=== PATIENT | female | born 1985 | race Caucasian/White ===

== ENCOUNTER 2020-09-19 14:13 | Emergency (ER) | payer BC, SELFPAY ==
[2020-09-19 14:18] VITALS: BP 124/79; PULSE 117; RESP 19; TEMP 36.4; O2SAT 98
[2020-09-19] MEDS: SODIUM CHLORIDE 0.9% IV 1,000 ML 999 ML IV CONT (15:29)
[2020-09-19] MEDS: FAMOTIDINE 20 MG/2 ML VIAL IV PUSH (15:30)
[2020-09-19] MEDS: DEXAMETHASONE SOD PHOS INJ 4 MG/ML VIAL 10 MG IV PUSH (15:32)
[2020-09-19 15:42] LABS: Basophils Absolute Auto 0.1 K/mm3 (0.0-0.1); Basophils Percent Auto 1.1 % (0.2-1.2); Eosinophils Absolute Auto 0.1 K/mm3 (0-0.3); Eosinophils Percent Auto 1.4 % (0-4.4); Hematocrit 44.7 % (37.0-47.0); Hemoglobin 15.9 g/dL (12.0-15.0); Immature Granulocyte Absolute 0.01 K/mm3 (0.00-0.031); Immature Granulocyte Percent A 0.2 % (0-0.5); Lymphocytes Absolute Auto 1.26 K/mm3 (0.9-3.2); Mean Corpuscular HGB Conc 35.6 g/dl (32-36); Mean Corpuscular Hemoglobin 30.7 pg (26-34); Mean Corpuscular Volume 86.3 fl (80-100); Mean Platelet Volume 10.3 fl (7.4-10.4); Monocytes Absolute Auto 0.4 K/mm3 (0.1-0.6); Monocytes Percent Auto 9.7 % (2.6-8.5); Neutrophils Absolute Auto 2.6 K/mm3 (1.3-6.7); Neutrophils Percent Auto 58.6 % (45.5-73.1); Platelet Count Result 178 k/mm3 (150-375); Red Blood Count 5.18 M/mm3 (4.2-5.4); Red Cell Distribution Width 12.2 % (11.5-14.5); White Blood Count 4.4 K/mm3 (4.5-10.0)
[2020-09-19 15:55] LABS: Anion Gap 7 mmol/L (8-16); Blood Urea Nitrogen 15 mg/dL (7-17); Calcium 8.6 mg/dL (8.4-10.2); Carbon Dioxide 25 mmol/L (22-30); Chloride 108 mmol/L (98-107); Estimated CRCL calculation 80 ml/min; Estimated Glomerular Filt Rate > 60; Glucose 91 mg/dL (65-105); Sodium 140 mmol/L (137-145)
[2020-09-19 16:46] LABS: CRP 2.9 mg/dL (<1.0)
--- NOTE | 2020-09-19 16:52 | ED.GENADULT ---
HPI - General Adult General Chief complaint: Wound/Laceration Stated complaint: Spider Bite left Leg Time Seen by Provider: 09/19/20 14:52 Source: patient Mode of arrival: ambulatory Limitations: no limitations History of Present Illness HPI narrative: Patient is a 35-year-old female who presents with wound to the left thigh that occurred Wednesday felt like what she believed to be an insect sting followed by pain and has since had discomfort to the left thigh above and below the area of the bite with increasing discoloration centrally with surrounding erythema. Patient denies similar occurrence or other individuals with similar rash. Patient was started on Keflex by primary care and tramadol. Patient denies fever chills nausea vomiting Related Data Allergies Allergy/AdvReac Type Severity Reaction Status Date / Time amoxicillin Allergy Unknown Unknown Verified 09/18/20 11:15 Penicillins Allergy Unknown Unknown Verified 09/18/20 11:15 Review of Systems Review of Systems: All systems reviewed & are unremarkable except as noted in HPI and below PMFSH Past Medical History Medical History (Updated 09/19/20 @ 17:09 by Juice Saucedo PA-C) Anxiety Depression Surgical History Surgical History Delivery by section Family History Family History Mother Family history of elevated blood lipids Social History Social History Smoking status: Never smoker Second hand tobacco smoke exposure: Yes Alcohol intake: never Exam Const: General: cooperative, healthy appearing and comfortable Orientation/consciousness: oriented to person Limitations: no limitations HENMT: Head: normal to inspection and normocephalic Ears: hearing grossly normal bilaterally and external ears normal General nose exam: Normal external nose present and Normal nares present Face and sinus: normal facial exam Mouth: Yes Normal oral and palatal mucosa present and Yes lip normal Eyes: General: appearance normal, both eyes and all related structures Neck: Neck: normal visual inspection Resp: Effort & Inspection: normal respiratory effort and able to speak in complete sentences Auscultation: clear to auscultation bilaterally Cardio: Rate: regular rate Rhythm: regular rhythm Heart sounds: S1 normal heart sound present and S2 normal heart sound present GI: Inspection: normal to inspection Skin: General skin exam: normal color and other (Patient with pale central lesion with slightly erythematous borders ) Wounds: wounds noted (Quarter sized lesion left thigh) Hair: normal Neuro: General: oriented to person Cranial nerves: Yes CN's II-XII intact bilaterally Speech: normal speech Gait exam (Neuro): Normal gait present Extrem: General: normal to inspection Right upper extremity: normal to inspection Left upper extremity: normal to inspection Right lower extremity: normal to inspection Psych: Appearance: grossly normal Mental Status: mental status grossly normal Speech and movement: Normal speech and movement present Affect: normal affect Attitude: cooperative Thought process: Normal thought process present Thought content: Yes Normal thought content present Course Course Emergency Course: Patient evaluated in the emergency department for wound to the left thigh had basic blood work obtained no high risk changes discussion was made with primary care who will follow the patient in clinic patient was given fluids steroid and antihistamines in the emergency department it is likely a spider bite thought to potentially be brown recluse given the central discoloration there is no eschar at this time. Patient advised to senait the wound margins and to follow with primary care and will do so patient was given instructions on what to do if symptoms worsen or concerns. Patient
[2020-09-19 17:32] VITALS: BP 122/81; PULSE 97; RESP 17; O2SAT 98
== END 2020-09-19 17:33 | disposition home or self-care (01) ==
PROVIDERS: Emergency Medicine Emergency Medical Services; Emergency Provider Emergency Medicine; PCP Family Medicine
DX: S71.152A Open bite, left thigh, initial encounter (principal); W57.XXXA Bitten or stung by nonvenomous insect and other nonvenomous arthropods, initial encounter
CPT/HCPCS: 36415; 80048; 85025; 86140; 96361; 96374; 96375; 99284; J0131; J1100; J7030

== ENCOUNTER 2024-01-21 19:03 | Emergency (ER) | payer BC, SELFPAY ==
--- NOTE | ~2024-01-21 | XR_ITS ---
EXAMINATION: XR tibia fibula RT 2V DATE: 01/21/2024 19:45 INDICATION: Pain at the distal right lower leg TECHNIQUE: AP and lateral views of the right lower leg were obtained. COMPARISON: None. FINDINGS: Alignment is normal. No fracture. Joint spaces are normal. No right ankle joint effusion. Soft tissue s are unremarkable. IMPRESSION: 1. Negative right lower leg radiographs. Reviewed, dictated and finalized at location A.
[2024-01-21 19:24] VITALS: BP 122/80; PULSE 80; RESP 16; TEMP 36.6; O2SAT 99
--- NOTE | 2024-01-21 19:34 | ED.GENADULT ---
HPI - General Adult General Chief complaint: Extremity Injury, Lower Stated complaint: Right Ankle and Leg Pain Time Seen by Provider: 01/21/24 19:30 Source: patient, RN notes reviewed and old records reviewed Mode of arrival: ambulatory Limitations: no limitations History of Present Illness HPI narrative: 38 year old female who presents to [facility] care with complaints of pain to her right anterior lower leg with no known injury which started on Wednesday with pain at the anterior aspect of her right lower leg near the ankle. with some pain in her whole leg when she ambulates. Patient has some redness to the anterior right lower leg and when she extends and flexes her toes pain is in the anterior aspect of her leg. Patient has no pain to the calf of her lower leg with no swelling noted She reports that her leg is painful to walk on and she has strong pedal pulses to her right foot. Patient has worked the past 3 days on her leg hobbling around. Patient report family history of DVT denies any known clotting disease in family. MD complaint: right leg pain Onset (ago): day(s) (3) Location: right (anterior lower right leg with some redness) and lower extremity Severity scale (1-10): 8 Quality: aching and other (throbbing) Pain Consistency: colicky Treatments prior to arrival: NSAID Related Data Allergies Allergy/AdvReac Type Severity Reaction Status Date / Time amoxicillin Allergy Unknown Unknown Verified 01/22/24 07:45 Penicillins Allergy Unknown Unknown Verified 01/22/24 07:45 Review of Systems Review of Systems: CONSTITUTIONAL: Denies fever, chills, or sweats. EYES: Denies visual changes, redness, or discharge. ENT: Denies rhinorrhea, congestion, sore throat, or otalgia. CARDIOVASCULAR: Denies chest pain, palpitations, or edema. RESPIRATORY: Denies cough or dyspnea. GASTROINTESTINAL: Denies abdominal pain, nausea, vomiting, or diarrhea. GENITOURINARY: Denies dysuria or hematuria. SKIN: Denies rash or itching. MUSCULOSKELETAL: Denies back pain, positive for pain to her right lower anterior leg with some redness anterior aspect lower leg,, or myalgia. NEUROLOGIC: Denies headache, numbness, or weakness. PSYCHIATRIC: Reports anxiety or depression. All systems reviewed & are unremarkable except as noted in HPI and below [facility] Past Medical History Medical History Anxiety Current moderate episode of major depressive disorder Depression Obesity PCOS (polycystic ovarian syndrome) Surgical History Surgical History Delivery by section History of endometrial ablation Feb 2022 History of foot surgery Family History Family History Mother Family history of elevated blood lipids Social History Social History Smoking status: Current some day smoker Second hand tobacco smoke exposure: Yes Alcohol intake: never Substance use: never Substance use type: does not use Do You Feel Safe in your Home?: Yes Lack of Transportation: No Lack of Food: Never True Current Housing: I Have Housing Concerned About Future Housing: No Difficulty Paying Gas/Electric Bills: No Difficulty Paying for Meds: No Currently Unemployed: No Education: High School Diploma/GED Difficulty w/ Childcare or Family Care: No Living arrangements: with family Occupation/Education: occupation 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 There is no relevant family history pertinent to the presenting complaint Exam Narrative: GENERAL: Well-appearing, well-nourished, and in some acute distress due to her pain. HEAD: Normocephalic, atraum
== END 2024-01-21 20:04 | disposition home or self-care (01) ==
PROVIDERS: Emergency Provider Registered Nurse; PCP Family Medicine
DX: M79.661 Pain in right lower leg (principal); F17.200 Nicotine dependence, unspecified, uncomplicated; E28.2 Polycystic ovarian syndrome; E66.9 Obesity, unspecified; Z68.28 Body mass index [BMI] 28.0-28.9, adult
CPT/HCPCS: 73590; 99213; G0463

== ENCOUNTER 2024-01-22 06:47 | Emergency (ER) | payer BC, SELFPAY ==
--- NOTE | ~2024-01-22 | US_ITS ---
EXAMINATION: US venous doppler LE RT DATE: 01/22/2024 07:55 INDICATION: Right lower limb pain and swelling. TECHNIQUE: Grayscale ultrasound images without and with compression and Doppler ultrasound images of the right lower extremity veins were obtained. COMPARISON: None. FINDINGS: The visualized portions of right common femoral vein, profunda (deep) femoral vein, femoral vein, pop liteal vein, peroneal veins, posterior tibial veins, and greater saphenous vein outflow are patent. IMPRESSION: 1. No deep venous thrombosis. Reviewed, dictated and finalized at location A.
[2024-01-22 06:50] VITALS: BP 126/87; PULSE 101; RESP 20; TEMP 36.3; O2SAT 98
--- NOTE | 2024-01-22 08:03 | ED.EXTPRO ---
HPI - Extremity Problem General Chief complaint: Extremity Problem,Nontraumatic Stated complaint: leg pain Time Seen by Provider: 01/22/24 07:35 History of Present Illness HPI Narrative: Patient is a 38-year-old female who presents ER for evaluation of possible DVT. She was seen at urgent care yesterday. She had been having pain to her anterior right garcia as well as some redness and mild swelling. She has family history of DVT. They performed an x-ray that showed no acute bony issue. Patient denies trauma. Pain is better with rest. Redness is decreased today. Patient reports she felt a bit anxious last night but otherwise has not been having any chest pain or shortness of breath. Related Data Allergies Allergy/AdvReac Type Severity Reaction Status Date / Time amoxicillin Allergy Unknown Unknown Verified 01/22/24 07:45 Penicillins Allergy Unknown Unknown Verified 01/22/24 07:45 Review of Systems Constitutional: Constitutional: Reports no additional constitutional complaints Cardiovascular: Cardiovascular: Reports no additional cardiovascular complaints Respiratory: Respiratory: Reports no additional respiratory complaints Musculoskeletal: Musculoskeletal: Denies back pain, Denies arthralgias, Denies joint swelling and Denies muscle cramps Integumentary/Breasts: Skin/Breast: Denies pruritus, Reports erythema, Denies rash and Denies skin ulcer PMFSH Past Medical History Medical History Anxiety Current moderate episode of major depressive disorder Depression Obesity PCOS (polycystic ovarian syndrome) Surgical History Surgical History Delivery by section History of endometrial ablation Feb 2022 History of foot surgery Family History Family History Mother Family history of elevated blood lipids Social History Social History Smoking status: Current some day smoker Second hand tobacco smoke exposure: Yes Alcohol intake: never Substance use: never Substance use type: does not use Do You Feel Safe in your Home?: Yes Lack of Transportation: No Lack of Food: Never True Current Housing: I Have Housing Concerned About Future Housing: No Difficulty Paying Gas/Electric Bills: No Difficulty Paying for Meds: No Currently Unemployed: No Education: High School Diploma/GED Difficulty w/ Childcare or Family Care: No Living arrangements: with family Occupation/Education: occupation 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 HEAD: Normocephalic, atraumatic. CHEST: Clear to auscultation. No respiratory distress. HEART: Regular rate and rhythm. Normal peripheral pulses. EXTREMITIES: Normal range of motion. No edema. Mild tenderness of the right anterior garcia distal aspect but not at the ankle. SKIN: Warm, dry, no rash. NEURO: Alert and oriented x3. PSYCH: Normal mood and affect. Course Vital Signs Vital signs: Vital Signs Temperature 97.4 F L 01/22/24 06:50 Pulse Rate 101 H 01/22/24 06:50 Respiratory Rate 20 01/22/24 06:50 Blood Pressure 126/87 01/22/24 06:50 Pulse Oximetry 98 01/22/24 06:50 Oxygen Delivery Room Air 01/22/24 06:50 Temperature 97.4 F L 01/22/24 06:50 Pulse Rate 101 H 01/22/24 06:50 Respiratory Rate 20 01/22/24 06:50 Blood Pressure 126/87 01/22/24 06:50 Pulse Oximetry 98 01/22/24 06:50 Oxygen Delivery Room Air 01/22/24 06:50 MDM - Extremity (Nontraumatic) MDM Narrative Medical decision making narrative: -Course: Resting comfortably, informed results. Discussed treatment plan. -Co-morbiditie
[2024-01-22 08:17] VITALS: BP 124/84; PULSE 87; RESP 20; TEMP 36.3; O2SAT 99
== END 2024-01-22 08:18 | disposition home or self-care (01) ==
PROVIDERS: Emergency Provider Emergency Medicine; PCP Family Medicine
DX: M79.661 Pain in right lower leg (principal); E28.2 Polycystic ovarian syndrome; E66.9 Obesity, unspecified; Z68.28 Body mass index [BMI] 28.0-28.9, adult; F17.200 Nicotine dependence, unspecified, uncomplicated; Z83.6 Family history of other diseases of the respiratory system
CPT/HCPCS: 93971; 99284

== ENCOUNTER 2024-08-24 04:27 | Emergency (ER) | payer BC, SELFPAY ==
--- NOTE | ~2024-08-24 | CT_ITS ---
CT of the Abdomen and Pelvis: Indication: Abdominal pain Technique: 2.5 mm axial scans were obtained through the abdomen and pelvis following intravenous adm inistration of 100 cc of Omnipaque 350. Dose reduction technique was used on this scan by utilizing a utomated exposure control and iterative reconstruction technique. The dose-length product (DLP) was 3 30.28 mGy-cm. Findings: Scans through the lung bases are unremarkable. The liver, spleen, pancreas, gallbladder, adrenals and kidneys are within normal limits. No evidence of aortic aneurysm. No lymphadenopathy. There is wall thickening of small bowel loops with mild haziness in the adjacent mesentery. No bowel obstruction. Large bowel unremarkable. Images through the pelvis were performed. Urinary bladder unremarkable. No adnexal mass evident. Smal l amount of pelvic ascites present. Impression: Nonspecific small bowel infectious/inflammatory enteritis. Small amount of pelvic ascites. Reviewed, dictated and finalized at [facility]. ENTRY SPECIALIST Impression: Nonspecific small bowel infectious/inflammatory enteritis. Small amount of pelvic ascites.
--- OUTSIDE RECORDS SUMMARY | 2024-08-24 04:29 | XMS_ITS | Referral Summary ---
Author Organization [facility] Address [address] [place] [address] Care Team Providers Care Plumbing Service Technician Name Role Phone Amisha Pizarro MD Primary Care Provider Encounters Date Type Department Care Team Description 08/22/2024 8:39 PM LOG ROLLER - 08/23/2024 1:44 AM [facility] Emergency Department [address] [place] [address] Discharge Disposition: Left without being seen from Last 3 Months Allergies Active Allergy Reactions Criticality Noted Date Comments Hydrocodone Penicillin G Swollen tongue,Other (See comments) Low Reaction: Swollen Tongue, throat, Penicillins Swollen tongue High Reaction: tongue swell, Prochlorperazine Swollen tongue High Reaction: TONGUE SWELLING, Medications esomeprazole DR (NexIUM) 40 mg capsule Take 40 mg by mouth daily before breakfast. Active ibuprofen (ADVIL,MOTRIN) 800 mg tablet TAKE 1 TABLET BY MOUTH EVERY 6-8 HOURS NEEDED 1 06/11/2017 Active LORazepam (ATIVAN) 1 mg tablet 0 12/23/2021 Active spironolactone (ALDACTONE) 50 mg tablet Take 1 tablet (50 mg total) by mouth daily 90 tablet 3 02/25/2022 Active sertraline (ZOLOFT) 100 mg tablet Take 100 mg by mouth daily Active buPROPion XL (WELLBUTRIN XL) 300 mg 24 hr tablet Take 300 mg by mouth daily Active oxyCODONE-aceta minophen (PERCOCET) 5-325 mg per tabletIndicatio ns:Pain Take 1-2 tablets by mouth every 4 (four) hours as needed for pain (pain) 3 tablet 04/03/2022 Active Active Problems Patient Care Coordination No te Formatting of this note migh t be different from the original. [facility] growth scan 05-19-17 2906 gm (60%) 03/17/17 flu inj left arm.ac Rpt CS 06/09/17 @ 9:[address] [facility] Patient is scheduled for her [facility] 19 wk usg 01/22/17@1pm pt is informed Problem Noted Date Diagnosed Date Menorrhagia with regular cycle 03/13/2022 Overview (03/13/2022): Added automatically from request for surgery [id number] Depression 02/02/2022 Intrauterine 02/08/2017 Generalized anxiety disorder 05/13/2016 Abnormal cervical Papanicolaou smear 11/23/2014 Overview (10/01/2016): Abnormal Papanicolaou smear of cervix Chronic headache 11/04/2013 Overview (10/01/2016): Chronic headaches Polycystic ovaries 01/05/2013 Overview (10/01/2016): PCOS (polycystic ovarian syndrome) Tobacco dependence syndrome 01/05/2013 Overview (10/01/2016): Tobacco abuse Immunizations Immunization Administration Dates Next Due Influenza, Quadrivalent, Spl it, Preservative Free, Intramuscular 03/17/2017,04/17/2015 Influenza, Trivalent, IM (MDV) 04/04/2013 Rho (D) Immune Globulin 04/01/2017 Social History Tobacco Use Types Packs/Day Years Used Date Smoking Tobacco: Former Cigarettes Smokeless Tobacco: Never Tobacco Cessation:Counseling Given: Not Answered Alcohol Use Standard Drinks/Week Comments No 0 (1 standard drink = 0.6 oz pur e alcohol) AUDIT-C Answer Date Recorded Q1: How often do you have a drink containing alc ohol? Never 04/03/2022 Average Number of Drinks Not on file 022 Q3: How often do you have si x or more drinks on one occasion? Never 04/03/2022 Personal Safety Answer Date Recorded Have you ever been in or are you currently in a harmful physical or emotional relationship or is someone making you feel afraid or unsafe? Denies 08/22/2024 Comments No Sex and Gender Information Value Date Recorded Sex Assigned at Not on file Legal Sex Female 10:43 AM LOG ROLLER Gender Identity Not on file Sexual Orientation Not on file Last Filed Vital Signs Vital Sign Reading Time Taken Comments Blood Pressure 122/72 08/22/2024 8:54 PM LOG ROLLER Pulse 72 08/22/2024 8:54 PM LOG ROLLER Temperature 36.3 C (97.4 F) 08/22/2024 8:54 PM LOG ROLLER Respiratory Rate 16 08/22/2024 8:54 PM LOG ROLLER Oxygen Saturation 98% 08/22/2024 8:54 PM LOG ROLLER Inhaled Oxygen Concentration - - Weight 68 kg (150 lb) 08/22/2024 8:52 PM LOG ROLLER Height 160 cm (5' 3 ) 08/22/2024 8:52 PM LOG ROLLER Body Mass Index 26.57 08/22/2024 8:52 PM LOG ROLLER Plan of Treatment Not on file Procedures Procedure Name Priority Date/Time Associated Diagnosis Comments XR CHEST 1 VIEW ED 08/22/2024 9:40 PM LOG ROLLER EGFR STAT 08/22/2024 9:05 PM LOG ROLLER DIFFERENTIAL AUTO STAT 08/22/2024 9:0 5 PM LOG ROLLER TROPONIN T HIGH-SENSITIVITY SERIES (BASELINE, 2HR, 4HR, 6HR) STAT 08/22/2024 9:05 PM LOG ROLLER LIPASE STAT 08/22/2024 9:05 PM LOG ROLLER COMPREHENSIVE METABOLIC PANEL STAT 08/22/2024 9:05 PM LOG ROLLER CBC WITH AUTO DIFFERENTIAL STAT 08/22/2024 9:05 PM LOG ROLLER PAP AND HIGH RISK HPV, REFLEX TO GENOTYPING Routine 02/02/2022 2:28 PM CDT Screening for malignant neoplasm of the cervix from Last 3 Months or Most Recently Relevant to Health Maintenance Results * XR Chest 1 Vw Portable (08/22/2024 9:40 PM LOG ROLLER) Anatomical Region Laterality Modality Body, Chest N/A Computed Radiogr aphy 08/22/2024 10:4 3 PM LOG ROLLER Narrative 08/22/2024 10:43 PM LOG ROLLER EXAM DESCRIPTION: XR CHEST 1 VIEW REASON FOR STUDY: epigastric pain Pt ambulatory to ED from home. Pt states she is having 7/10 epigastric pain that radiates to her L flank which comes and goes for the last 24 hours. Pt denies any pertinent medical history. TECHNIQUE: Frontal radiographic view(s) of the chest. COMPARISON: 05/10/2006 FINDINGS: LUNGS: The lungs are clear. No focal pulmonary parenchymal consolidation, pleural effusion, or pneumothorax. HEART/MEDIASTINUM: Cardiac silhouette normal in size. Mediastinal and hilar contours appear normal. LINES/TUBES: None. BONES: No acute osseous abnormality. IMPRESSION: No acute cardiopulmonary abnormality. THIS IS AN ELECTRONICALLY VERIFIED FINAL REPORT 08/22/2024 10:43 PM - Electronically signed by Pranav Oconnell M.D. AT: AT Report ID: [id number] Reading Location: [id number] Procedure Note Pranav Oconnell MD - 08/22/2024 EXAM DESCRIPTION: XR CHEST 1 VIEW REASON FOR STUDY: epigastric pain Pt ambulatory to ED from home. Pt states she is having 7/10 epigastricpain that radiates to her L flank which comes and goes for the last 24 hours.Pt denies any pertinent medical history. TECHNIQUE: Frontal radiographic view(s) of the chest. COMPARISON: 05/10/2006 FINDINGS: LUNGS: The lungs are clear. No focal pulmonary parenchymalconsolidation, pleural effusion, or pneumothorax. HEART/MEDIASTINUM: Cardiac silhouette normal in size. Mediastinal andhilar contours appear normal. LINES/TUBES: None. BONES: No acute osseous abnormality. IMPRESSION: No acute cardiopulmonary abnormality. THIS IS AN ELECTRONICALLY VERIFIED FINAL REPORT 08/22/2024 10:43 PM - Electronically signed by Andtalon Oconnell M.D. AT: AT Report ID: [id number] Reading Location: [id number] us Vladimir Purikimberly COSTING ANALYST IMG XR PROCEDURES Final Res ult * Troponin T high-sensitivity series (baseline, 2hr, 4hr, 6hr) (08/22/2024 9:05 PM LOG ROLLER) Pathologist [facility] Trop T hs <6 <=14 ng/L Comment: Interpretive Data For further hscTnT resources including the diagnostic algorithm and an aid in interpretation, copy and paste this link: [email or web address].testcatalog.org/show/[email or web address] Current Interpretive Data last revised 2020. Blood 08/22/2024 9:05 PM LOG ROLLER 08/22/2024 9:22 PM LOG ROLLER us Lyndsay Rawls MD LAB BLOOD ORDERABLE S Final Result [facility] [place]) 7 [facility] Department [place] [address] * eGFR (08/22/2024 9:05 PM LOG ROLLER) eGFR 78 >=60 mL/min/1. 73 m2 Comment: Interpretive Data Reference Interval Normal >/= 90 mL/min/1.73m2 Mildly decreased* 60 - 89 mL/min/1.73m2 Mildly to moderately decreased 45 - 59 mL/min/1.73m2 Moderately to severely decreased 30 - 44 mL/min/1.73m2 Severely decreased 15 - 29 mL/min/1.73m2 Kidney Failure < 15 mL/min/1.73m2 *Relative to young adult level Estimated glomerular filtration rate is determined by the 2020 CKD-EPI equation recommended by the National Kidney Foundation (A Unifying Approach to GFR Estimation: Recommendations of the NKF-ASK Task Force on Reassessing the Inclusion of Race in Diagnosing Kidney Disease, JASN 2020). The CKD-EPI equation should not be used for patients with unstable renal function and has not been validated in children and those over 70. Current interpretive data was last reviewed 2021. Blood 08/22/2024 9:05 PM LOG ROLLER 08/22/2024 9:22 PM LOG ROLLER us Lyndsay Rawls MD LAB BLOOD ORDERABLE S Final Result [facility] ([place]) 1 [facility] Department [place] [address] * Differential, auto (08/22/2024 9:05 PM LOG ROLLER) Neutrophil abs 6.0 1.5 - 6.5 K/cumm Imm gran abs 0.0 0.0 - 0.1 K/cumm [facility] ([place]) Lymphocyte abs 2.8 0.8 - 3.3 K/cumm [facility] ([place]) Monocyte abs 0.7 0.2 - 0.8 K/cumm [facility] ([place]) Eosinophil abs 0.1 0.0 - 0.5 K/cumm [facility] ([place]) Basophil abs 0.1 0.0 - 0.1 K/cumm [facility] ([place]) Neutrophil pct 62.4 % [facility] ([place]) Comment: Interpretive Data Percent cell count reference ranges are not reported, since discordance with absolute values may lead to misinterpretation of CBC data. Current Interpretive Data was last revised on 2017. Imm gran pct 0.2 % [facility] ([place]) Comment: Interpretive Data Percent cell count reference ranges are not reported, since discordance with absolute values may lead to misinterpretation of CBC data. Current Interpretive Data was last revised on 2017. Lymphocyte pct 29.0 % [facility] ([place]) Comment: Interpretive Data Percent cell count reference ranges are not reported, since discordance with absolute values may lead to misinterpretation of CBC data. Current Interpretive Data was last revised on 2017. Monocyte pct 6.8 % [facility] ([place]) Comment: Interpretive Data Percent cell count reference ranges are not reported, since discordance with absolute values may lead to misinterpretation of CBC data. Current Interpretive Data was last revised on 2017. Eosinophil pct 1.1 % [facility] ([place]) Comment: Interpretive Data Percent cell count reference ranges are not reported, since discordance with absolute values may lead to misinterpretation of CBC data. Current Interpretive Data was last revised on 2017. Basophil pct 0.5 % [facility] ([place]) Comment: Interpretive Data Percent cell count reference ranges are not reported, since discordance with absolute values may lead to misinterpretation of CBC data. Current Interpretive Data was last revised on 2017. Blood 08/22/2024 9:05 PM LOG ROLLER 08/22/2024 9:22 PM LOG ROLLER us Lyndsay Rawls MD LAB BLOOD ORDERABLE S Final Result [facility] ([place] Department [place] [address] * (ABNORMAL) CBC with auto differential (08/22/2024 9:05 PM LOG ROLLER) WBC 9.6 3.8 - 9.9 K/cumm Hgb 16.2(H) 11.9 - 15.5 g/dL [facility] ([place]) Hct 45.3 35.6 - 45.5 % [facility] ([place]) Plt 271 150 - 400 K/cumm [facility] ([place]) MPV 10.7 9.1 - 12.3 fL [facility] ([place]) RBC 5.31(H) 3.90 - 5.20 M/cumm [facility] ([place]) MCV 85.3 81.3 - 96.4 fL [facility] ([place]) MCH 30.5 27.1 - 33.3 pg [facility] ([place]) MCHC 35.8(H) 32.3 - 35.7 g/dL [facility] ([place]) RDW CV 12.7 11.1 - 14.9 % [facility] ([place]) RDW SD 39.5 35.7 - 48.1 fL [facility] ([place]) NRBC abs 0.00 0.00 - 0.01 K/cumm [facility] ([place]) Blood Venous blood specimen / Unknown 08/22/2024 9:05 PM LOG ROLLER 08/22/2024 9:22 PM LOG ROLLER Lyndsay Rawls MD LAB BLOOD ORDERABLE S Final Result Performing Organization Address City/[facility]/ZIP Co de Phone Number [facility] ([place]) 1 [facility] [place] [address] * Lipase (08/22/2024 9:05 PM LOG ROLLER) Pathologist [facility] Lipase 46 10 - 99 Units/L Blood Venous blood specimen / Unknown 08/22/2024 9:05 PM LOG ROLLER 08/22/2024 9:22 PM LOG ROLLER Lyndsay Rawls MD LAB BLOOD ORDERABLE S Final Result Performing Organization Address City/[facility] Co de Phone Number [facility] ([place]) [address] [place] [address] * Comprehensive metabolic panel (08/22/2024 9:05 PM LOG ROLLER) Pathologist [facility] Sodium 137 135 - 145 mmol/L Potassium, pl 3.7 3.3 - 4.9 mmol/L [facility]) Chloride 101 97 - 110 mmol/L [facility] ([place] CO2 23 22 - 32 mmol/L [facility]) Anion gap 14 2 - 15 mmol/L [facility] BUN 14 6 - 25 mg/dL [facility] ([place]) Creatinine 0.95 0.60 - 1.10 mg/dL [facility] ([place]) Glucose 111 70 - 199 mg/dL [facility] ([place]) Comment: Interpretive Data Fasting glucose >/= 126 mg/dl is diagnostic for diabetes. Fasting is defined as no caloric intake for at least 8 hours. Fasting glucose between 100 mg/dl to 125 mg/dl is diagnostic of prediabetes. In a patient with classic symptoms of hyperglycemia or hyperglycemic crisis, a random glucose >/= 200 mg/dl is diagnostic for diabetes. In the absence of unequivocal hyperglycemia, results should be confirmed by repeat testing. The classification and Diagnosis of Diabetes Diabetes Care 202; 46: S19-S40. Current interpretive data was last revised 2022. Calcium 9.9 8.5 - 10.3 mg/dL [facility] Bilirubin, total 0.7 0.1 - 1.2 mg/dL [facility] ([place]) Protein, pl 7.1 6.5 - 8.5 g/dL [facility] ([place]) Albumin 4.5 3.5 - 5.0 g/dL [facility] ([place]) Alk phos 106 40 - 130 Units/L [facility] ([place]) ALT 23 7 - 45 Units/L [facility] ([place]) AST 19 10 - 45 Units/L [facility] ([place]) Comment:Slightly Hemolyzed S pecimen Blood 08/22/2024 9:05 PM LOG ROLLER 08/22/2024 9:22 PM LOG ROLLER us Lyndsay Rawls MD LAB BLOOD ORDERABLE S Final Result [facility] ([place]) 1 [facility] Department [place] [address] * Pap and High Risk HPV, reflex to Genotyping (02/02/2022 2:28 PM CDT) Thin prep (Pap test) 02/02/2022 2:28 PM CDT 02/06/2022 9:34 AM CDT Narrative PATHOLOGY [facility] - 02/10/2022 8:19 AM CDT [facility] results best viewed via link to PDF [place] [id number] [place], [place] [address] Tele: Sera Husain MD - Medical Terminologist CYTOLOGY REPORT Note to Patients: This report may contain a detailed description of human tissue sent by a health care provider to the laboratory for pathologic evaluation. The content of this report is essential for diagnosis and may provide important critical findings. This information may be unfamiliar to patients to review without a medical professional present. It is advised that the patient review this report in the presence of a health care provider who can answer questions and explain the details. Patient Name: JULI CAN Address: [address] , [place] [id number] Gender: F : 1985 (Age: 36) Service: Location: Hospital #: [id number] Patient Type: [facility] SPECIMEN Taken: 02/02/2022 Reported: 02/10/2022 Physician(s): Nia Castro M.D. FINAL DIAGNOSIS: Specimen Type: - ThinPrep Pap and HPV w/ reflex Genotyping Statement of Specimen Adequacy: Source: Cervical/Endocervical - Satisfactory for interpretation - Endocervical/Transformation zone component absent or insufficient - Case screened using computer assisted imaging technology General Categorization: - Negative for intraepithelial lesion or malignancy xbb/02/10/2022 08:19SO Patel (ASCP) Report Reviewed and Electronically Signed By SO Patel (ASCP)Clerical Data Follow A; [id number] DIAGNOSIS COMMENT: Ancillary Testing: HPV High Risk Group (16, 18, 31, 33, 35, 39, 45, 51, 52, 56, 58, 59, 66 and 68) - Not Detected Reference Range: Not Detected This test was performed using the LORIE 4800 CLINICAL DIAGNOSIS AND HISTORY Last Menstrual Period: 11/22 Menstrual History: Irregular Cycles REPORT IMAGES AND/OR SCANNED DOCUMENTS ONLY VIEWABLE IN PDF FORMAT The Pap test is a screening test used to aid in the detection of cervical cancer and its precursors. It should not be the sole means by which malignant and premalignant lesions are diagnosed. Both false negative and false positive results may occur. It also has poor sensitivity for the detection of endometrial lesions and should not be used to evaluate suspected endometrial abnormalities. For these reasons it is most important to obtain Pap tests at regular intervals, as recommended by your physician or nurse practitioner. us Nia Castro MD LAB CYTOLOGY ORDERABLES Fin al Result PATHOLOGY [facility] Laboratory Receiving [address] [place] [address] from Last 3 Months or Most Recently Relevant to Health Maintenance Insurance [employer] [facility] [place] [employer] ACCESS OOS [facility] OOS Advance Directives For more information, please contact: [phone] * Full Code (Latest Code Status on File) Date Activated Date Inactivated Comments 04/03/2022 12:51 PM 04/03/2022 4:41 PM Care Teams Plumbing Service Technician Relationship Specialty Start Date End Date Amisha Pizarro MD PCP - General 09/22/20
--- OUTSIDE RECORDS SUMMARY | 2024-08-24 04:29 | XMS_ITS | Patient Health Summary ---
Author Organization [facility] Address [address] [place] [address] Care Team Providers Care Designer Writer Name Role Phone Amisha Pizarro MD Primary Care Provider [phone] Note from [facility],non-owned Affiliates and Associated Physician Practices is amultiple site organization consisting of ambulatory clinics and hospital sitesin [place], [place]. This disclosure is being madepursuant to the Care Everywhere program and may not contain all information available regarding this patient. Last updated 18.[facility] Allergies * Penicillins Medications * Be aware that medications may not be up to date on this document. Alwaysverify current medications with the patient. * Wzgfmi-JcUox-AgPbs-FA-CA-Waka (TRIVEEN-DUO DHA) 29-1-200 & 400 MG MISC (Started 09/09/2012) Take 2 Tabs by mouth once daily. May dispense any free Vitamin w/ DHA 12 refills left * sertraline (Zoloft) 100 MG tablet Take 1 (one) tablet by mouth once daily * buPROPion XL 24hr (Wellbutrin-XL) 300 MG tablet Take 1 (one) tablet by mouth every morning * oxyCODONE-acetaminophen (Percocet) 10-325 MG tablet(Started 04/30/2022) Take 1 (one) tablet by mouth every 8 hours as needed Active Problems Problem Noted Date Diagnosed Date Crushing injury of left foot, initial encounter 04/28/2022 Open non-physeal fracture of phalanx of toe of left foot, unspecified toe, initial encounter 04/28/2022 Encounter for health-related screening 1 Immunizations * TDAP (7yrs+)(Given 04/28/2022) Social History Tobacco Use Types Packs/Day Years Used Date Smoking Tobacco: Former Cigarettes Q uit: 04/21/2012 Smokeless Tobacco: Never Tobacco Cessation:Counseling Given: Not Answered Alcohol Use Standard Drinks/Week Comments No 0 (1 standard drink = 0.6 oz pur e alcohol) AUDIT-C Answer Date Recorded Q1: How often do you have a drink containing alcohol? Never 04/28/2022 Q2: How many drinks containi ng alcohol do you have on a typical day when you are drinking? Patient does not drink Q3: How often do you have si x or more drinks on one occasion? Never 04/28/2022 Hunger Vital Sign Answer Date Recorded Within the past 12 months, y ou worried that your food would run out before you got the money to buy more. Never true 04/29/20 22 Within the past 12 months, t he food you bought just didn't last and you didn't have money to get more. Never true 04/29/2022 Sex and Gender Information Value Date Recorded Sex Assigned at Not on file Gender Identity Not on file Sexual Orientation Not on file Last Filed Vital Signs Vital Sign Reading Time Taken Comments Blood Pressure 122/81 04/30/2022 11:15 AM [facility] Pulse 82 04/30/2022 11:15 AM [facility] Temperature 37.1 C (98.7 F) 04/30/2022 11:15 AM [facility] Respiratory Rate 14 04/30/2022 11:15 AM [facility] Oxygen Saturation 98% 04/30/2022 11:15 AM [facility] Inhaled Oxygen Concentration - - Weight 72.6 kg (160 lb) 04/28/2022 9:07 AM [facility] Height 160 cm (5' 3 ) 04/28/2022 9:07 AM [facility] Body Mass Index 28.34 04/28/2022 9:07 AM [facility] Medical Devices Implanted Type Area Senior Compensation Consultant Device Identifier Shelf Expiration Date Model / Serial / Lot 0.45 Kwire Implanted:Qty: 2 on 04/28/2022 by Thierry Meredith DPM at [facility] Left: Toe [employer] [id number] / / Description:1 KWIRE TO LEFT 2ND TOE, 1 KWIRE TO LEFT 3RD TOE Procedures * IMAGING/RADIOLOGY/XRAY RESULTS ORDER(Performed 05/01/2022) * COMPREHENSIVE METABOLIC PANEL(Performed 04/30/2022) Performed for Crushing injury of left foot, initial encounter * CBC W/O DIFFERENTIAL(Performed 04/30/2022) Performed for Crushing injury of left foot, initial encounter * CBC W/O DIFFERENTIAL(Performed 04/29/2022) Performed for Open non-physeal fracture of phalanx of toe of left foot, unspecified toe, initial encounter * BASIC METABOLIC PANEL (CALCIUM TOTAL)(Performed 04/29/2022) Performed for Open non-physeal fracture of phalanx of toe of left foot, unspecified toe, initial encounter * FL HERNANDO SURGERY(Performed 04/28/2022) Performed for Open non-physeal fracture of phalanx of toe of left foot, unspecified toe, initial encounter * AMPUTATION TOE(Performed 04/28/2022) * PTT(Performed 04/28/2022) * PT-INR(Performed 04/28/2022) * CBC W AUTO DIFFERENTIAL(Performed 04/28/2022) * XR FOOT LEFT 3VW OR MORE(Performed 04/28/2022) Performed for Crushing injury of left foot, initial encounter * TYPE + SCREEN PANEL(Performed 04/28/2022) * COMPREHENSIVE METABOLIC PANEL(Performed 04/28/2022) * URINE MICROSCOPIC ONLY REFLEX TO CULTURE(Performed 01/14/2017) Performed for 18 weeks gestation of ([facility]) * URINALYSIS REFLEX MICROSCOPIC REFLEX CULTURE(Performed 01/14/2017) Performed for 18 weeks gestation of ([facility]) * CULTURE URINE(Performed 01/14/2017) Performed for 18 weeks gestation of ([facility]) * URINALYSIS OBSTETRICS - POINT OF CARE(Performed 01/14/2017) * VARICELLA ZOSTER ANTIBODY IGG(Performed 02/20/2015) * RUBEOLA ANTIBODY IGG(Performed 02/20/2015) * MUMPS ANTIBODY IGG(Performed 02/20/2015) * RUBELLA ANTIBODY IGG(Performed 02/20/2015) * HEPATITIS B SURFACE ANTIBODY(Performed 02/20/2015) * PAP IG RFLX HPV ASCU(Performed 10/27/2013) Performed for Well woman exam with routine gynecological exam, LGSIL (low grade squamous intraepithelial dysplasia) * PAP IG RFLX HPV ASCU(Performed 06/19/2013) Performed for LGSIL (low grade squamous intraepithelial dysplasia) * PATHOLOGY SPECIMEN(Performed 12/08/2012) Performed for PRINCE I (cervical intraepithelial neoplasia I) * PAP IG RFLX HPV ASCU(Performed 09/09/2012) Performed for Well woman exam with routine gynecological exam, PRINCE I (cervical intraepithelial neoplasia I) * SKIN TEST PPD - POINT OF CARE(Performed 07/15/2011) Performed for School health examination * TESTOSTERONE FREE+TOT FEM/CHLD HYPOGNDL MALE(Performed 06/16/2011) Performed for Oligomenorrhea * TSH HI LOW REFLEX FREE T4(Performed 06/16/2011) Performed for Oligomenorrhea * PROLACTIN(Performed 06/16/2011) Performed for Oligomenorrhea * HYDROXYPROGESTERONE 17-(Performed 06/16/2011) Performed for Oligomenorrhea * PAP IG LB CT+GC RFLX HPV HR ASCU(Performed 06/16/2011) Performed for Well woman exam with routine gynecological exam, Screen for STD (sexually transmitteddisease) Results * IMAGING RADIOLOGY XRAY RESULTS ORDER (05/01/2022 9:27 PM [facility]) Anatomical Region Laterality Modality Other Narrative 05/01/2022 9:27 PM [facility] Ordered by an unspecified provider. Scanned Document IMAGING * CBC W/O DIFFERENTIAL (04/30/2022 3:45 AM [facility]) Only the most recent of2 resultswithin the time period is included. WBC 8.9 4.4 - 10.7 x10E9/L 04/30/2022 4:15 AM [facility] RBC 4.94 3.80 - 5.20 x10E12/L 04/30/2022 4:15 AM [facility] Hemoglobin 14.4 12.0 - 15.6 gm/dL 04/30/2022 4:15 AM [facility] Hematocrit 43.6 35.9 - 45.5 % 04/30/2022 4:15 AM [facility] MCV 88.3 80.7 - 98.3 fl 04/30/2022 4:15 AM [facility] MCH 29.1 26.7 - 34.0 pg 04/30/2022 4:15 AM [facility] MCHC 33.0 30.8 - 35.9 gm/dL 04/30/2022 4:15 AM [facility] Platelet Count 254 153 - 416 x10E9/L 04/30/2022 4:15 AM [facility] RDW-CV 12.8 12.1 - 14.9 % 04/30/2022 4:15 AM [facility] MPV 9.7 9.4 - 12.9 fl 04/30/2022 4:15 AM [facility] Blood BLOOD SPECIMEN / Unknown Lab Venipuncture / Unknown 04/30/2022 3:45 AM [facility] 04/30/2022 4:07 AM [facility] Joseph Santos MD LAB - HEMATOLOGY ORDERABLES [facility] [address] [place] [address] * (ABNORMAL) COMPREHENSIVE METABOLIC PANEL (04/30/2022 3:45 AM [facility]) Only the most recent of2 resultswithin the time period is included. [facility] Glucose 88 70 - 105 mg/dL 04/30/2022 4:40 AM [facility] Sodium 137 136 - 145 mmol/L 04/30/2022 4:40 AM [facility] Potassium 4.7 3.5 - 5.1 mmol/L 04/30/2022 4:40 AM [facility] Chloride 104 98 - 107 mmol/L 04/30/2022 4:40 AM [facility] CO2 25 23 - 31 mmol/L 04/30/2022 4:40 AM [facility] Calcium 8.9 8.4 - 10.4 mg/dL 04/30/2022 4:40 AM [facility] Anion Gap 8 8 - 18 mmol/L 04/30/2022 4:40 AM [facility] BUN 12 7 - 18.7 mg/dL 04/30/2022 4:40 AM [facility] Creatinine 0.88 0.57 - 1.11 mg/dL 04/30/2022 4:40 AM [facility] Alkaline Phosphatase 93 40 - 150 U/L 04/30/2022 4:40 AM [facility] ALT 10 0 - 61 U/L 04/30/2022 4:40 AM [facility] AST 14 5 - 34 U/L 04/30/2022 4:40 AM [facility] Protein Total 6.4 6.4 - 8.3 gm/dL 04/30/2022 4:40 AM [facility] Albumin 3.8 3.5 - 5.2 gm/dL 04/30/2022 4:40 AM [facility] Bilirubin Total 0.3 0.2 - 1.2 mg/dL 04/30/2022 4:40 AM [facility] eGFR by CKD-EPI 87(L) >=90 mL/min/1.7 3 m2 04/30/2022 4:40 AM [facility] Blood BLOOD SPECIMEN / Unknown Lab Venipuncture / Unknown 04/30/2022 3:45 AM [facility] 04/30/2022 4:07 AM [facility] Joseph Santos MD LAB - CHEMISTRY ORDERABLES [facility] [address] [place] [address] * BASIC METABOLIC PANEL (CALCIUM TOTAL) (04/29/2022 3:25 AM [facility]) Glucose 86 70 - 105 mg/dL 04/29/2022 4:12 AM [facility] Sodium 140 136 - 145 mmol/L 04/29/2022 4:12 AM [facility] Potassium 4.0 3.5 - 5.1 mmol/L 04/29/2022 4:12 AM [facility] Chloride 107 98 - 107 mmol/L 04/29/2022 4:12 AM [facility] CO2 23 23 - 31 mmol/L 04/29/2022 4:12 AM [facility] Calcium 8.9 8.4 - 10.4 mg/dL 04/29/2022 4:12 AM [facility] Anion Gap 10 8 - 18 mmol/L 04/29/2022 4:12 AM [facility] BUN 17 7 - 18.7 mg/dL 04/29/2022 4:12 AM [facility] Creatinine 0.83 0.57 - 1.11 mg/dL 04/29/2022 4:12 AM [facility] eGFR by CKD-EPI >90 >=90 mL/min/1.7 3 m2 04/29/2022 4:12 AM [facility] Blood BLOOD SPECIMEN / Unknown Lab Venipuncture / Unknown 04/29/2022 3:25 AM [facility] 04/29/2022 3:50 AM [facility] Amanda Lucio HAND SHOES SEWER-ADMINISTRATIVE NURSING SUPERVISOR LAB - CHEMISTR Y ORDERABLES Performing Organization Address City/[facility]/ZIP Co de Phone Number [facility] [address] [place] [address] * [place] HERNANDO SURGERY (04/28/2022 12:11 PM [facility]) Narrative [facility] RADIOLOGY - 04/28/2022 12:12 PM [facility] For details of this study, please see the providers note. Thierry Meredith DPM FLUOROSCOPY ORDER JULIA Performing Organization Address [facility] Co de Phone Number [facility] * PTT (04/28/2022 10:10 AM [facility]) PTT 26.4 23.0 - 38.4 sec 04/28/2022 10:30 AM [facility] Blood BLOOD SPECIMEN / Unknown Venipuncture / Unknown 04/28/2022 10:10 AM [facility] 04/28/2022 10:16 AM [facility] Narrative [facility] - 04/28/2022 10:30 AM [facility] Heparin Therapeutic Range for PTT: 69.0 - 110.0 seconds. Tal Cohen MD LAB - COAGULATION OR DERABLES Performing Organization Address [facility] Co de Phone Number [facility] [address] [place] [address] * PT-INR (04/28/2022 10:10 AM [facility]) PT 13.1 12.1 - 14.8 sec 04/28/2022 10:30 AM [facility] INR 1.0 0.9 - 1.1 04/28/2022 10:30 AM [facility] Blood BLOOD SPECIMEN / Unknown Venipuncture / Unknown 04/28/2022 10:10 AM [facility] 04/28/2022 10:16 AM [facility] - 04/28/2022 10:30 AM [facility] Conventional Warfarin Anticoagulant Therapy: INR Reference Range: 2.0-3.0 Intensive Warfarin Anticoagulant Therapy: INR Reference Range: 2.5-3.5 Tal Cohen MD LAB - COAGULATION OR DERABLES [facility] [address] [place] [address] * (ABNORMAL) CBC W AUTO DIFFERENTIAL (04/28/2022 10:10 AM [facility]) WBC 11.1(H) 4.4 - 10.7 x10E9/L 04/28/2022 10:20 AM [facility] WBC Corrected 04/28/2022 10:20 AM [facility] RBC 4.61 3.80 - 5.20 x10E12/L 04/28/2022 10:20 AM [facility] Hemoglobin 13.8 12.0 - 15.6 gm/dL 04/28/2022 10:20 AM [facility] Hematocrit 40.5 35.9 - 45.5 % 04/28/2022 10:20 AM [facility] MCV 87.9 80.7 - 98.3 fl 04/28/2022 10:20 AM [facility] MCH 29.9 26.7 - 34.0 pg 04/28/2022 10:20 AM [facility] MCHC 34.1 30.8 - 35.9 gm/dL 04/28/2022 10:20 AM [facility] Platelet Count 281 153 - 416 x10E9/L 04/28/2022 10:20 AM [facility] RDW-CV 13.1 12.1 - 14.9 % 04/28/2022 10:20 AM [facility] MPV 10.0 9.4 - 12.9 fl 04/28/2022 10:20 AM [facility] Neutrophils % 67.4 44.0 - 73.0 % 04/28/2022 10:20 AM [facility] Lymphocytes % 22.0 20.0 - 43.0 % 04/28/2022 10:20 AM [facility] Monocytes % 8.6 5.0 - 13.0 % 04/28/2022 10:20 AM [facility] Eosinophils % 0.8 0.0 - 6.0 % 04/28/2022 10:20 AM [facility] Basophils % 0.5 0.0 - 2.0 % 04/28/2022 10:20 AM [facility] Immature Granulocytes 0.7 0 - 1 % 04/28/2022 10:20 AM [facility] Neutrophil Absolute 7.49(H) 2.01 - 7.14 x10E9/L 04/28/2022 10:20 AM [facility] Lymphocytes Absolute 2.44 1.07 - 3.94 x10E9/L 04/28/2022 10:20 AM [facility] Monocytes Absolute 0.96 0.26 - 1.07 x10E9/L 04/28/2022 10:20 AM [facility] Eosinophils Absolute 0.09 0 - 0.47 x10E9/L 04/28/2022 10:20 AM [facility] Basophils Absolute 0.05 0 - 0.08 x10E9/L 04/28/2022 10:20 AM [facility] Immature Granulocytes Absolute 0.08(H) 0.00 - 0.06 x10E9/L 04/28/2022 10:20 AM [facility] nRBC Auto 0 /100 WBC 04/28/2022 10:20 AM [facility] Blood BLOOD SPECIMEN / Unknown Venipuncture / Unknown 04/28/2022 10:10 AM [facility] 04/28/2022 10:16 AM [facility] Tal Cohen MD LAB - HEMATOLOGY ORD ERABLES [facility] [address] [place] [address] [address] * XR FOOT LEFT 3VW OR MORE (04/28/2022 9:28 AM [facility]) Anatomical Region Laterality Modality Ankle / Foot Radiographic Aniyah ging 04/28/2022 10:0 3 AM [facility] Impressions 04/28/2022 10:04 AM [facility] IMPRESSION: Comminuted, essentially nondisplaced fractures of the distal phalanges of the second and third toes. No additional fractures. > Interpreting Provider: Tal Kahn MD on 04/28/2022 10:04 AM Narrative 04/28/2022 10:04 AM [facility] PROCEDURE: XR FOOT LEFT 3VW OR MORE, DATE/TIME OF EXAM: 04/28/2022 9:29 AM, LOCATION [facility] INDICATION: S97.82XA: Crushing injury of left foot, initial encounter ADDITIONAL CLINICAL INFORMATION: Ordering Provider Reason For Exam: Technologist Note: Additional: COMPARISON: None. FINDINGS: Comminuted, essentially nondisplaced tuft fractures of the distal phalanges of the second and third toes are noted. No discrete radiopaque foreign bodies are identified. Small plantar calcaneal heel spur is present. Procedure Note Tal Kahn MD - 04/28/2022 PROCEDURE: XR FOOT LEFT 3VW OR MORE, DATE/TIME OF EXAM: 04/28/2022 9:29 AM, LOCATION [facility] INDICATION: S97.82XA: Crushing injury of left foot, initial encounter ADDITIONAL CLINICAL INFORMATION: Ordering Provider Reason For Exam: Technologist Note: Additional: COMPARISON: None. FINDINGS: Comminuted, essentially nondisplaced tuft fractures of the distalphalanges of the second and third toes are noted. No discrete radiopaque foreign bodies are identified. Small plantar calcaneal heel spur is present. IMPRESSION: Comminuted, essentially nondisplaced fractures of the distal phalangesof the second and third toes. No additional fractures. > Interpreting Provider: Tal Kahn MD on 04/28/2022 10:04 AM Tal Cohen MD DIAGNOSTIC IMAGING O RDERABLES * TYPE + SCREEN PANEL (04/28/2022 9:22 AM [facility]) ABO Rh B NEG 04/28/2022 10:11 AM [facility] Antibody Screen NEG 10:11 AM [facility] Blood Bank BLOOD SPECIMEN / Unknown Venipuncture / Unknown 04/28/2022 9:22 AM [facility] 04/28/2022 9:24 AM [facility] Tal Cohen MD LAB - BLOOD BANK ORD ERABLES [facility] [address] [phone] * (ABNORMAL) URINALYSIS MICROSCOPIC ONLY W/REFLEX CULTURE (01/14/2017 11:52 AM CDT) RBC UA 2-5 0-2, 2-5 # /hpf 01/14/2017 1:06 PM [facility] WBC UA 10-20(A) 0-2, 2-5 # /hpf 01/14/2017 1:06 PM T [facility] Bacteria UA 2+(A) None Seen 01/14/2017 1:06 PM [facility] Epithelial Cell UA 5-10(A) 0-2, 2-5 # /hpf 01/14/2017 1:06 PM [facility] Reflex Status Culture to follow 01/14/2017 1:06 PM [facility] Urine URINE SPECIMEN OBTAINED BY CLEAN CATCH PROCEDURE / Unknown Collection / Unknown 01/14/2017 11:52 AM CDT 01/14/2017 12:08 PM CDT Neda Chow MD LAB - URINALYSIS ORD ERABLES [facility] [address] [place] [address] * (ABNORMAL) URINALYSIS ROUTINE W/REFLEX TO CULTURE (01/14/2017 11:52 AM CDT) Color UA Yellow Straw, Yellow, Dark Yellow 01/14/2017 1:02 PM CDT [facility] Clarity UA Clear 01/14/2017 1:02 PM CDT [facility] Specific Irwin UA 1.020 1.005 - 1.030 01/14/2017 1:02 PM T [facility] pH UA 6.0 5.0 - 8.0 pH 01/14/2017 1:02 PM T [facility] Protein UA Negative Negative 01/14/2017 1:02 PM CDT [facility] Blood UA Negative Negative 01/14/2017 1:02 PM T [facility] Leukocyte UA 3+(A) Negative 01/14/2017 1:02 PM CDT [facility] Nitrite UA Negative Negative 01/14/2017 1:02 PM CDT [facility] Glucose UA Negative Negative 01/14/2017 1:02 PM CDT [facility] Ketone UA Negative Negative 01/14/2017 1:02 PM CDT [facility] Bilirubin UA Negative Negative 01/14/2017 1:02 PM T [facility] Urobilinogen UA 0.2 0.1 - 1.0 EU/dL 01/14/2017 1:02 PM [facility] Reflex Status Culture to follow 01/14/2017 1:02 PM [facility] Urine URINE SPECIMEN OBTAINED BY CLEAN CATCH PROCEDURE / Unknown Collection / Unknown 01/14/2017 11:52 AM CDT 01/14/2017 12:08 PM CDT Neda Chow MD LAB - URINALYSIS ORD ERABLES Performing Organization Address City/[facility]/ZIP Co de Phone Number [facility] [address] [place] [address] * CULTURE URINE (01/14/2017 11:52 AM CDT) Culture Urine <10,000 CFU/mL urogenital madeline HIMANSHU 01/15/2017 1:04 PM CDT [facility] Urine URINE SPECIMEN OBTAINED BY CLEAN CATCH PROCEDURE / Unknown Collection / Unknown 01/14/2017 11:52 AM CDT 01/14/2017 12:08 PM CDT Neda Chow MD LAB - MICROBIOLOGY O RDERABLES [facility] [address] [place] [address], [facility] [phone] * URINALYSIS OBSTETRICS - POINT OF CARE (01/14/2017 11:39 AM CDT) Glucose UA negative Negative [facility] Bilirubin UA negative Negative [facility] PO CT TESTING Ketone UA negative Negative [facility] PO[facility] TEST[facility] Specific Irwin UA POCT 1.015 1.000 - 1.030 [facility] Blood UA negative Negative [facility] pH UA 6.5 5.0 - 8.0 pH units [facility] TEST[facility] Protein UA negative Negative [facility] Urobilinogen UA 0.2 0.2 - 1.0 EU/dL [facility] POCT TEST[facility] Nitrite UA negative Negative [facility] Leukocyte UA 2+ Negative [facility] PO CT TESTING QC Verified Yes Yes [facility] POC T TESTING Urine URINE / Unknown 01/14/2017 1 1:39 AM CDT Neda Chow MD LAB - POINT OF CARE ORDERABLES [facility] [address] [phone] * RUBEOLA ANTIBODY IGG (02/20/2015 11:40 AM CDT) Measles (Rubeola) Antibody IgG 117.0 AU/mL 02/23/2015 1:08 AM CDT [facility] [[email or web address]] [facility] ([facility]) Comment: INTERPRETIVE INFORMATION: Measles (Rubeola) Antibody, IgG 24.9 AU/mL or less........ Negative - No significant level of detectable measles (rubeola) IgG antibody. 25.0-29.9 AU/mL .......... Equivocal - Repeat testing in 10-14 days may be helpful. 30.0 AU/mL or greater .... Positive - IgG antibody to measles (rubeola) detected which may indicate a current or past exposure/immunization to measles (rubeola). The best evidence for current infection is a significant change on two appropriately timed specimens, where both tests are done in the same laboratory at the same time. Blood specimen (specimen) BLOOD SPECIMEN / Unknown Venipuncture / Unknown 02/20/2015 11:40 AM CDT 02/20/2015 8:09 PM CDT Provider Unknown LAB - CHEMISTRY YEE FRANK Performing Organization Address [facility] de Phone Number [facility] ([facility]) [address] * MUMPS ANTIBODY IGG (02/20/2015 11:40 AM CDT) Mumps Virus Antibody IgG 9.3 AU/mL 02/23/2015 1:02 AM CDT [facility] ([facility]) Comment: INTERPRETIVE INFORMATION: Mumps Ab, IgG by SHAREE 8.9 AU/mL or less .... Negative - No significant level of detectable IgG mumps virus antibody 9.0-10.9 AU/mL ....... Equivocal - Repeat testing in 10-14 days may be helpful 11.0 AU/mL or greater: Positive - IgG antibody to mumps virus detected, which may indicate a current or past exposure/ immunization to mumps virus. The best evidence for current infection is a significant change on two appropriately timed specimens, where both tests are done in the same laboratory at the same time. Blood specimen (specimen) BLOOD SPECIMEN / Unknown Venipuncture / Unknown 02/20/2015 11:40 AM CDT 02/20/2015 8:09 PM CDT Provider Unknown LAB - CHEMISTRY YEE FRANK Performing Organization Address [facility] Co de Phone Number [facility] ([facility]) [address] * VARICELLA ZOSTER ANTIBODY IGG (02/20/2015 11:40 AM CDT) Varicella zoster Virus Antibody IgG 1775.0 IV 02/23/2015 12:55 AM CDT [facility] ([facility]) Comment: INTERPRETIVE INFORMATION: VZV Ab, IgG 134 IV or less ....... Negative - No significant level of detectable IgG varicella- zoster antibody. 135 -165 IV .......... Equivocal - Repeat testing in 10-14 days may be helpful. 166 IV or greater .... Positive - IgG antibody to varicella-zoster detected, which may indicate a current or past varicella-zoster infection. The best evidence for current infection is a significant change on two appropriately timed specimens, where both tests are done in the same laboratory at the same time. Blood specimen (specimen) BLOOD SPECIMEN / Unknown Venipuncture / Unknown 02/20/2015 11:40 AM CDT 02/20/2015 8:09 PM CDT Provider Unknown LAB - CHEMISTRY ORDE MONIKA [facility] ([facility]) [address] * RUBELLA ANTIBODY IGG (02/20/2015 11:40 AM CDT) [facility] Rubella Antibody IgG Positive - Immune 02/20/2015 9:01 PM CDT [facility] Blood BLOOD SPECIMEN / Unknown Venipuncture / Unknown 02/20/2015 11:40 AM CDT 02/20/2015 8:09 PM CDT Provider Unknown LAB - SEROLOGY ORDER JULIA Performing Organization Address [facility] de Phone Number [facility] [address] [place] [address] * (ABNORMAL) HEPATITIS B SURFACE ANTIBODY (02/20/2015 11:40 AM CDT) [facility] HBsAb REACTIVE(A ) Non Reactive 02/20/2015 8:50 PM CDT [facility] Blood BLOOD SPECIMEN / Unknown Venipuncture / Unknown 02/20/2015 11:40 AM CDT 02/20/2015 8:09 PM CDT Provider Unknown LAB - CHEMISTRY ORDE MONIKA Performing Organization Address [facility] Co de Phone Number [facility] [address] [place] [address] * PAP SMEAR IG RFLX HPV ASCU (PO REF LAB) (10/27/2013 11:36 AM CDT) Only the most recent of3 resultswithin the time period is included. Pathologist [facility] Diagnosis [facility] ACCOUNT BILL Comment:NEGATIVE FOR INTRAEP ITHELIAL LESION AND MALIGNANCY. Specimen Adequacy [facility] ACCOUNT BILL Comment: Satisfactory for evaluation. Endocervical and/or squamous metaplastic cells (endocervical component) are present. Clinician Provided ICD9 [facility] ACCOUNT BILL Comment: V72.31 ; Routine gynecological examination 796.9 ; Other nonspecific abnormal finding Performed by [facility] ACCOUNT BILL Comment:Beck Dowell, Cytotec hnologist (ASCP) Comment . [facility] ACCOUNT BILL Note [facility] ACCOUNT BILL Comment: The Pap smear is a screening test designed to aid in the detection of premalignant and malignant conditions of the uterine cervix. It is not a diagnostic procedure and should not be used as the sole means of detecting cervical cancer. Both false-positive and false-negative reports do occur. . IGLBP CPT Code Automation [facility] ACCOUNT BILL Comment: This liquid based ThinPrep(R) pap test was screened with the use of an image guided system. Note [facility] ACCOUNT BILL Comment: The HPV DNA reflex criteria were not met with this specimen result therefore, no HPV testing was performed. . MICROSCOPIC CYTOLOGIC EXAMINATION OF SMEAR OF SPECIMEN FROM FEMALE GENITAL TRACT PREPARED USING PAPANICOLAOU TECHNIQUE / Unknown 10/27/2013 11:36 AM CDT 10/31/2013 2:33 AM CDT Narrative [facility] ACCOUNT BILL - 11/01/2013 8:06 PM CDT No. of containers..01 CYTYC Thin Prep Vial Resulting Agency Comment [address] [phone] Lanette Burroughs MD LAB - PATHOLOGY /CYTOLOGY ORDERABLES [facility] ACCOUNT BILL * PATHOLOGY SPECIMEN (12/08/2012 2:30 PM CDT) Material [facility] ACCOUNT BILL Comment: Material submitted: . CX BX CLHIST [facility] ACCOUNT BILL Comment: Clinical history: . LGSIL PAP H/O PRINCE 1 F Diagnosis [facility] ACCOUNT BILL Comment: Diagnosis: CERVIX, BIOPSY: BENIGN ECTOCERVICAL TISSUE. TRANSFORMATION ZONE NOT REPRESENTED. . COMMENT: The patient's prior Pap test result is reviewed. SAGE/12/13/2012 Signed [facility] ACCOUNT BILL Comment: Electronically signed: . Laura Anne MD, Pathologist Grossed [facility] ACCOUNT BILL Comment: Gross description: . 1 Container, formalin-filled, labeled with patient identification. CX BX: Received in formalin labeled JULI CAN is a mcnamara-white fragment of tissue measuring 0.3 x 0.2 x 0.1 cm. It is filtered through an embedding bag and submitted as received in cassette A. /LMS LMS/LMS Micros [facility] ACCOUNT BILL Comment: Microscopic: . The diagnosis is based on a microscopic examination of the submitted tissue. CPT [facility] ACCOUNT BILL Comment: CPT . [id number] Miscellaneous samples (specimen) SURGICAL PATHOLOGY SPECIMEN, CLERICAL PROCEDURE INCLUDING CODING OF DIAGNOSES / Unknown 12/08/2012 2:30 PM CDT 12/09/2012 6:30 AM CDT Narrative Resulting Agency Comment [facility] [place] [address] [facility] [phone] Lanette Burroughs MD LAB - PATHOLOGY /CYTOLOGY ORDERABLES [facility] ACCOUNT BILL * SKIN TEST PPD - POINT OF CARE (07/15/2011 9:20 AM BRASS BUFFER) PPD 0mm Comment:neg MISCELLANEOUS SAMPLE S / Unknown Leidy Marroquin HAND SHOES SEWER-ADMINISTRATIVE NURSING SUPERVISOR LAB - POINT OF CARE ORDERABLES * TSH HI LOW REFLEX FREE T4 (PO REF LAB) (06/16/2011 2:56 PM BRASS BUFFER) TSH 1.560 0.450 - 4.500 uIU/mL [facility] ACCOUNT BILL BLOOD SPECIMEN / Unknown 06/16/2011 2:56 PM BRASS BUFFER 06/16/2011 6:58 PM BRASS BUFFER Narrative Resulting Agency Comment [facility] [address] [id number] Lanette Burroughs MD LAB - CHEMISTRY ORDERABLES Performing Organization Address City/[facility]/ZIP Co de Phone Number [facility] ACCOUNT BILL * PROLACTIN (06/16/2011 2:56 PM BRASS BUFFER) Prolactin 15.8 4.8 - 23.3 ng/mL [facility] ACCOUNT BILL Blood specimen (specimen) BLOOD SPECIMEN / Unknown 06/16/2011 2:56 PM BRASS BUFFER 06/16/2011 6:58 PM BRASS BUFFER Narrative Resulting Agency Comment [facility] [place] [id number] [facility] [id number] Lanette Burroughs MD LAB - CHEMISTRY ORDERABLES Performing Organization Address [facility] Co de Phone Number [facility] ACCOUNT BILL * HYDROXYPROGESTERONE 17- (06/16/2011 2:56 PM BRASS BUFFER) 17-Hydroxyproge sterone LCMS 184 ng/dL [facility] ACCOUNT BILL Comment: Adult Female Follicular 15 - 70 Luteal 35 - 290 Blood specimen (specimen) BLOOD SPECIMEN / Unknown 06/16/2011 2:56 PM BRASS BUFFER 06/16/2011 6:58 PM BRASS BUFFER Narrative Resulting Agency Comment [facility] [address] [id number] Lanette Burroughs MD LAB - CHEMISTRY ORDERABLES Performing Organization Address City/[facility] Co de Phone Number [facility] ACCOUNT BILL * (ABNORMAL) TESTOSTERONE FREE+TOT FEM/CHLD HYPOGNDL MALE (06/16/2011 2:56 PM BRASS BUFFER) Testosterone 41 8 - 48 ng/dL [facility] ACCOUNT BILL Testosterone Free 0.87(H) 0.10 - 0.85 ng/dL [facility] ACCOUNT BILL Testosterone % Free 2.12 0.50 - 2.80 % [facility] ACCOUNT BILL Blood specimen (specimen) BLOOD SPECIMEN / Unknown 06/16/2011 2:56 PM BRASS BUFFER 06/16/2011 6:58 PM BRASS BUFFER Narrative Resulting Agency Comment [facility] [address] [id number] Lanette Burroughs MD LAB - CHEMISTRY ORDERABLES [facility] ACCOUNT BILL * (ABNORMAL) PAP IG CT+GC RFLX HPV ASCU (PO REF LAB) (06/16/2011 2:48 PM BRASS BUFFER) Diagnosis (A) [facility] ACCOUNT BILL Comment: EPITHELIAL CELL ABNORMALITY. LOW-GRADE SQUAMOUS INTRAEPITHELIAL LESION (LGSIL); MILD DYSPLASIA IS PRESENT. Specimen Adequacy [facility] ACCOUNT BILL Comment: Satisfactory for evaluation. Endocervical and/or squamous metaplastic cells (endocervical component) are present. Clinician Provided ICD9 [facility] ACCOUNT BILL Comment: V72.31 ; Routine gynecological examination V74.5 ; Screening examination for venereal disease 626.1 ; Scanty or infrequent menstruation Performed by [facility] ACCOUNT BILL Comment:Robert Van, Cyto technologist (ASCP) Electronically Signed by [facility] ACCOUNT BILL Comment:Rain Sena MD, P athologist Comment . [facility] ACCOUNT BILL Pathologist Provided ICD9 [facility] ACCOUNT BILL Comment:795.03 Note [facility] ACCOUNT BILL Comment: The Pap smear is a screening test designed to aid in the detection of premalignant and malignant conditions of the uterine cervix. It is not a diagnostic procedure and should not be used as the sole means of detecting cervical cancer. Both false-positive and false-negative reports do occur. . IGLBP CPT Code Automation [facility] ACCOUNT BILL Comment: This liquid based ThinPrep(R) pap test was screened with the use of an image guided system. Reflex [facility] ACCOUNT BILL Comment: The HPV DNA reflex criteria were not met with this specimen result therefore, no HPV testing was performed. . Chlamydia trachomatis RIO Negative Negative [facility] ACCOUNT BILL GC DNA Probe Negative Negative [facility] ACCOUNT BILL MICROSCOPIC CYTOLOGIC EXAMINATION OF SMEAR OF SPECIMEN FROM FEMALE GENITAL TRACT PREPARED USING PAPANICOLAOU TECHNIQUE / Unknown 06/16/2011 2:48 PM BRASS BUFFER 06/17/2011 4:48 AM BRASS BUFFER Narrative [facility] ACCOUNT BILL - 06/23/2011 4:07 PM BRASS BUFFER No. of containers..01 CYTYC Thin Prep Vial Resulting Agency Comment [facility] [address] [id number] Lanette Burroughs MD LAB - PATHOLOGY /CYTOLOGY ORDERABLES [facility] ACCOUNT BILL Care Teams Designer Writer Relationship Specialty Start Date End Date Amisha Pizarro MD [address] [place] [address] PCP - General Family Medicine 04/29/22
--- OUTSIDE RECORDS SUMMARY | 2024-08-24 04:29 | XMS_ITS | Clinical Summary ---
Author Organization [facility] Address [address] [place] [address] Care Team Providers Care Audio Visual Tech Name Role Phone Amisha Pizarro MD Primary Care Provider [phone] Source Comments [facility],non-owned Affiliates and Associated Physician Practices is amultiple site organization consisting of ambulatory clinics and hospital sitesin [place], [place], [place] and [place]. This disclosure is being madepursuant to the Care Everywhere program and may not contain all information available regarding this patient. Last updated 18.[facility] [place] Allergies Active Allergy Reactions Criticality Noted Date Comments Penicillins 06/16/2011 Medications * Be aware that medications may not be up to date on this document. Alwaysverify current medications with the patient. Medication Sig Dispensed Refills Start Date End Date Status Vcjljk-MjYic-EyLra-F A-CA-Hico (TRIVEEN-DUO DHA) 29-1-200 & 400 MG MISC Take 2 Tabs by mouth once daily. May dispense any free Vitamin w/ DHA 60 Each 12 09/09/2012 Active sertraline (Zoloft) 100 MG tablet Take 1 (one) tablet by mouth once daily Active buPROPion XL 24hr (Wellbutrin-XL) 300 MG tablet Take 1 (one) tablet by mouth every morning Active oxyCODONE-acetaminop hen (Percocet) 10-325 MG tablet Take 1 (one) tablet by mouth every 8 hours as needed 20 tablet 04/30/2022 Active Active Problems Problem Noted Date Diagnosed Date Crushing injury of left foot, initial encounter 04/28/2022 Open non-physeal fracture of phalanx of toe of left foot, unspecified toe, initial encounter 04/28/2022 Encounter for health-related screening 1 Overview (09/18/2017): Adult Abstraction Problem List Screening Dexa Scan (Bone Density): Result: Pap Smear: 10/27/13 neg 06/19/13 neg 12/08/2012 COLPO -normal biopsy 09/09/12 LGSIL 06/26/2011 colpo Ecc and CX both benign f/u 6 months for pap per [facility] (results scanned in media did not drop in EPIC) 06/16/11 lgsil, mild dyspl Result: 2004-abnormal. No followup. Mammogram: Result: CF Test: Result: IMO update 09 19 2017 Immunizations Name Administration Dates Next Due TDAP (7yrs+) 04/28/2022 Family History Medical History Relation Name Comments Hypertension Maternal Grandmother Relation Name Status Comments Maternal Grandmother Social History Tobacco Use Types Packs/Day Years [...] Comments Blood Pressure 122/81 04/30/2022 11:15 AM TOUR SALES REPRESENTATIVE Pulse 82 04/30/2022 11:15 AM TOUR SALES REPRESENTATIVE Temperature 37.1 C (98.7 F) 04/30/2022 11:15 AM TOUR SALES REPRESENTATIVE Respiratory Rate 14 04/30/2022 11:15 AM TOUR SALES REPRESENTATIVE Oxygen Saturation 98% 04/30/2022 11:15 AM TOUR SALES REPRESENTATIVE Inhaled Oxygen Concentration - - Weight 72.6 kg (160 lb) 04/28/2022 9:07 AM TOUR SALES REPRESENTATIVE Height 160 cm (5' 3 ) 04/28/2022 9:07 AM TOUR SALES REPRESENTATIVE Body Mass Index 28.34 04/28/2022 9:07 AM TOUR SALES REPRESENTATIVE Plan of Treatment Health Maintenance Due Date Last Done Comments HIV SCREENING 2000 HEPATITIS C SCREENING 03/05/2003 HEPATITIS B VACCINE (1 of 3 - 19+ 3-dose series) 2004 PAP SMEAR 10/27/2014 10/27/2013, 05/23, 09/09/2012, Additional history exists COVID-19 VACCINE ( season) 2024 INFLUENZA VACCINE (#1) 2024 8, 03/17/2017, 04/17/2015, Additional history exists DEPRESSION SCREENING 06/21/2024 DTAP/TDAP/TD VACCINES (2 - Td or Tdap) 04/28/2032 04/28/2022 ZOSTER VACCINE (1 of 2) 2035 HIB VACCINE Aged Out No longer eligi ble based on patient's age to complete this topic HPV VACCINE Aged Out No longer eligi ble based on patient's age to complete this topic MENINGOCOCCAL (Group B) VACCINE Aged Out No longer eligible based on patient's age to complete this topic MENINGOCOCCAL VACCINE Aged Out No hazel leslee eligible based on patient's age to complete this topic PNEUMOCOCCAL VACCINE Aged Out No long er eligible based on patient's age to complete this topic Medical Devices Implanted Type Area Reprographics Associate Device Identifier Shelf Expiration Date Model / Serial / Lot 0.45 Kwire Implanted:Qty: 2 on 04/28/2022 by Thierry Meredith DPM at [facility] Left: Toe [employer] [id number] / / Description:1 KWIRE TO LEFT 2ND TOE, 1 KWIRE TO LEFT 3RD TOE Procedures Procedure Name Priority Date/Time Associated Diagnosis Comments PAP IG RFLX HPV ASCU Routine 10/27/2013 11:36 AM CDT Well woman exam with routine gynecological exam LGSIL (low grade squamous intraepithelial dysplasia) from Last 3 Months or Most Recently Relevant to Health Maintenance Results * PAP SMEAR IG RFLX HPV ASCU (PO REF LAB) (10/27/2013 11:36 AM CDT) Diagnosis [facility] ACCOUNT BILL Comment:NEGATIVE FOR INTRAEP [...] Thin Prep Vial Resulting Agency Comment [facility] [address] [id number] Lanette Burroughs MD LAB - PATHOLOGY /CYTOLOGY ORDERABLES [facility] ACCOUNT BILL from Last 3 Months or Most Recently Relevant to Health Maintenance Advance Directives * Full Code (Latest Code Status on File) Date Activated Date Inactivated Comments 04/28/2022 2:39 PM 04/28/2022 2:39 PM * Full Code Date Activated Date Inactivated Comments 04/28/2022 12:33 PM 04/28/2022 2:39 PM * Full Code Date Activated Date Inactivated Comments 01/14/2017 11:38 AM 01/14/2017 1:33 PM Care Teams Audio Visual Tech Relationship Specialty Start Date End Date Amisha Pizarro MD [address] [place] [address] PCP - General Family Medicine 04/29/22
--- OUTSIDE RECORDS SUMMARY | 2024-08-24 04:29 | XMS_ITS | Encounter Summary ---
Author Organization [facility] Address [address] [place] [address] Phone Care Team Providers Care Powertrain Design Engineer Name Role Phone AcharyaFernandez pérez Primary Care Provider [phone] Amisha Pizarro MD Primary Care Provider [phone] Encounter Details Date Type Department Care Team (Late st Contact Info) Description 01/22/2017 Orders Only [facility] [address] [facility] [address] [address] Nia Castro MD [address] [place] [address], [place] [address] Social History Tobacco Use Types Packs/Day Years Used Date Smoking Tobacco: Never Alcohol Use Standard Drinks/Week Comments No 0 (1 standard drink = 0.6 oz pur e alcohol) Comments Yes Sex and Gender Information Value Date Recorded Sex Assigned at Not on file Legal Sex Female 10:43 AM LEATHER STRETCHER Gender Identity Not on file Sexual Orientation Not on file documented as of this encounter Plan of Treatment Not on file documented as of this encounter Procedures Procedure Name Priority Date/Time Associated Diagnosis Comments US ADBDOMEN W DOPPLER Schedule Routine, Read Routine (OP Routine) 01/22/2017 documented in this encounter Results * US Abdomen W Doppler (01/22/2017) Anatomical Region Laterality Modality Abdomen N/A Ultrasound us Nia Castro MD IMG US PROCEDURES Final Res ult documented in this encounter Visit Diagnoses Not on filedocumented in this encounter Care Teams Powertrain Design Engineer Relationship Specialty Start Date End Date Fernandez Acharya DO [address] [place] [address] PCP - General 01/22/17 09/21/20 Amisha Pizarro MD [address] [place] [address] PCP - General 09/22/20 documented as of this encounter
--- OUTSIDE RECORDS SUMMARY | 2024-08-24 04:29 | XMS_ITS | Clinical Summary ---
Author Organization [facility] [address] Address [address] [place] [address] [place] [address] Care Team Providers Care Inclined Railway Operator Name Role Phone AcharyaFernandez pérez Primary Care Provider [phone] Allergies Active Allergy Reactions Criticality Noted Date Comments Penicillins Other (See Comments) 02/17/2016 Throat swelling Medications albuterol HFA 90 mcg inhalerIndicatio ns:Cough,Upper respiratory tract infection, unspecified type Take 2 Puffs by inhalation every 6 hours as needed for Shortness of Breath. 8.5 Gram 7 Active Active Problems Problem Noted Date Diagnosed Date Intrauterine 02/08/2017 Generalized anxiety disorder 05/13/2016 Depression Resolved Problems Problem Noted Date Diagnosed Date Resolved Date Anxiety 05/13/2016 Social History Tobacco Use Types Packs/Day Years Used Date Smoking Tobacco: Former Alcohol Use Standard Drinks/Week Comments No 0 (1 standard drink = 0.6 oz pur e alcohol) Comments No Sex and Gender Information Value Date Recorded Sex Assigned at Not on file Legal Sex Female 5:47 PM CDT Gender Identity Not on file Sexual Orientation Not on file Last Filed Vital Signs Vital Sign Reading Time Taken Comments Blood Pressure 123/76 02/08/2017 8:42 AM CDT Pulse 100 02/08/2017 8:42 AM CDT Temperature 36.3 C (97.4 F) 02/08/2017 8:42 AM CDT Respiratory Rate 20 02/08/2017 8:42 AM CDT Oxygen Saturation 96% 02/08/2017 8:42 AM CDT Inhaled Oxygen Concentration - - Weight 75.8 kg (167 lb) 02/08/2017 8:42 AM CDT Height 160 cm (5' 3 ) 02/08/2017 8:42 AM CDT Body Mass Index 29.58 02/08/2017 8:42 AM CDT Plan of Treatment Health Maintenance Due Date Last Done Comments DTAP/TDAP/TD VACCINES (1 - Tdap) 2004 HEPATITIS B VACCINES (1 of 3 - 19+ 3-dose series) 2004 CERVICAL CANCER SCREENING 2015 INFLUENZA VACCINE (#1) 2024 7, 04/17/2015, 04/04/2013 Preventative Visit- Commercial 06/21/2024 10/27/2013, 09/09/2012, 06/16/2011 HPV VACCINES Aged Out No longer eligi ble based on patient's age to complete this topic Insurance [place] [id number] [facility] PREFERRED Care Teams Inclined Railway Operator Relationship Specialty Start Date End Date Fernandez Acharya DO [address] [place] [address] PCP - General Family Practice 02/17/16
--- OUTSIDE RECORDS SUMMARY | 2024-08-24 04:29 | XMS_ITS | Referral Summary ---
Author Organization [facility] Address [address] [place] [address] Care Team Providers Care Lpn Medical Assistant Name Role Phone Amisha Pizarro MD Primary Care Provider [phone] Source Comments [facility],non-owned Affiliates and Associated Physician Practices is amultiple site organization consisting of ambulatory clinics and hospital sitesin [place], [place], [place] and [place]. This disclosure is being madepursuant to the Care Everywhere program and may not contain all information available regarding this patient. Last updated 18.[facility] Allergies Active Allergy Reactions Criticality Noted Date Comments Penicillins 06/16/2011 Medications * Be aware that medications may not be up to date on this document. Alwaysverify current medications with the patient. Medication Sig Dispensed Refills Start Date End Date Status Cazamz-NtUdb-WmSjf-F A-CA-Erving (TRIVEEN-DUO DHA) 29-1-200 & 400 MG MISC [...] Administration Dates Next Due TDAP (7yrs+) 04/28/2022 Social History Tobacco Use Types Packs/Day Years [...] Comments Blood Pressure 122/81 04/30/2022 11:15 AM DIGITAL CONTROLS TECHNICAL OFFICER Pulse 82 04/30/2022 11:15 AM DIGITAL CONTROLS TECHNICAL OFFICER Temperature 37.1 C (98.7 F) 04/30/2022 11:15 AM DIGITAL CONTROLS TECHNICAL OFFICER Respiratory Rate 14 04/30/2022 11:15 AM DIGITAL CONTROLS TECHNICAL OFFICER Oxygen Saturation 98% 04/30/2022 11:15 AM DIGITAL CONTROLS TECHNICAL OFFICER Inhaled Oxygen Concentration - - Weight 72.6 kg (160 lb) 04/28/2022 9:07 AM DIGITAL CONTROLS TECHNICAL OFFICER Height 160 cm (5' 3 ) 04/28/2022 9:07 AM DIGITAL CONTROLS TECHNICAL OFFICER Body Mass Index 28.34 04/28/2022 9:07 AM DIGITAL CONTROLS TECHNICAL OFFICER Functional Status Functional Status Response Date of Assess ment Is person deaf or have serious hearing difficult y? No 01/14/2017 Is person blind or have serious difficulty seein g? No 01/14/2017 Does person have serious dif ficulty walking/climbing stairs? No 01/14/2017 Does person have difficulty dressing/bathing? No 01/14/2017 Does person have difficulty doing errands alone? No 01/14/2017 Cognitive Status Response Date of Assessm ent Does person have difficulty concentrating/remembering/making decisions? No 01/14/2017 Plan of Treatment Not on file Medical Devices Implanted Type Area Preschool Teacher Aide Device Identifier Shelf Expiration Date Model / Serial / Lot 0.45 Kwire Implanted:Qty: 2 on 04/28/2022 by Thierry Meredith DPM at [facility] Left: Toe [employer] [id number] / / Description:1 KWIRE TO LEFT 2ND [...] Thin Prep Vial Resulting Agency Comment [facility] [address] [id number] Lanette Burroughs MD LAB - PATHOLOGY /CYTOLOGY ORDERABLES Performing Organization Address City/State/[facility] Co de Phone Number [facility] ACCOUNT BILL from Last 3 Months or Most Recently Relevant to Health Maintenance Administered Medications Advance Directives * Full Code (Latest Code Status on File) Date Activated Date Inactivated Comments 04/28/2022 2:39 PM 04/28/2022 2:39 PM * Full Code Date Activated Date Inactivated Comments 04/28/2022 12:33 PM 04/28/2022 2:39 PM * Full Code Date Activated Date Inactivated Comments 01/14/2017 11:38 AM 01/14/2017 1:33 PM Care Teams Lpn Medical Assistant Relationship Specialty Start Date End Date Amisha Pizarro MD [address] [place] [address] PCP - General Family Medicine 04/29/22
--- OUTSIDE RECORDS SUMMARY | 2024-08-24 04:29 | XMS_ITS | Encounter Summary ---
Author Organization [facility] Address [address] [place] [address] Phone Care Team Providers Care Shoe Lining Fitter Name Role Phone Fernandez Acharya DO Primary Care Provider [phone] Amisha Pizarro MD Primary Care Provider [phone] Encounter Details Date Type Department Care Team (Latest Contact Info) Description 05/19/2017 Orders Only [facility] CONVERSION Scanning, Provider Social History Tobacco Use Types Packs/Day Years Used Date Smoking Tobacco: Never Alcohol Use Standard Drinks/Week Comments No 0 (1 standard drink = 0.6 oz pur e alcohol) Comments Yes Sex and Gender Information Value Date Recorded Sex Assigned at Not on file Legal Sex Female 10:43 AM ROD BUSTER Gender Identity Not on file Sexual Orientation Not on file documented as of this encounter Plan of Treatment Not on file documented as of this encounter Procedures Procedure Name Priority Date/Time Associated Diagnosis Comments OBSTETRIC/GYNECOLOGY ULTRASONOGRAPHY REPORT 05/19/2017 4:35 PM ROD BUSTER documented in this encounter Results * OBSTETRIC/GYNECOLOGY ULTRASONOGRAPHY REPORT (05/19/2017 4:35 PM ROD BUSTER) Anatomical Region Laterality Modality Ultrasound us Provider Scanning IMG OB US PROCEDURES Final Res ult documented in this encounter Visit Diagnoses Not on filedocumented in this encounter Care Teams Shoe Lining Fitter Relationship Specialty Start Date End Date Fernandez Acharya DO [address] [place] [address] PCP - General 01/22/17 09/21/20 Amisha Pizarro MD [address] [place] [address] PCP - General 09/22/20 documented as of this encounter
--- OUTSIDE RECORDS SUMMARY | 2024-08-24 04:30 | XMS_ITS | Encounter Summary ---
Author Organization [facility] Address [address] [place] [address] Care Team Providers Care Real Estate Valuer Name Role Phone Amisha Pizarro MD Primary Care Provider [phone] Encounter Details Date Type Department Care Team (Late st Contact Info) Description 02/20/2015 Lab Requisition [facility] [address] [place] [address] Unknown, Provider Social History Tobacco Use Types Packs/Day Years Used Date Smoking Tobacco: Former Cigarettes Q uit: 04/21/2012 Smokeless Tobacco: Never Alcohol Use Standard Drinks/Week Comments No 0 (1 standard drink = 0.6 oz pur e alcohol) Sex and Gender Information Value Date Recorded Sex Assigned at Not on file Gender Identity Not on file Sexual Orientation Not on file documented as of this encounter Plan of Treatment Not on file documented as of this encounter Procedures Procedure Name Priority Date/Time Associated Diagnosis Comments RUBEOLA ANTIBODY IGG Routine 02/20/2015 11:40 AM CDT MUMPS ANTIBODY IGG Routine 02/20/2015 11 :40 AM CDT VARICELLA ZOSTER ANTIBODY IGG Routine 02/20/2015 11:40 AM CDT RUBELLA ANTIBODY IGG Routine 02/20/2015 11:40 AM CDT HEPATITIS B SURFACE ANTIBODY Routine 02/20/2015 11:40 AM CDT documented in this encounter Results * VARICELLA ZOSTER ANTIBODY IGG (02/20/2015 11:40 AM CDT) Varicella zoster Virus Antibody IgG 6074.0 IV 02/23/2015 12:55 AM CDT [facility] ([facility]) Comment: INTERPRETIVE INFORMATION: VZV Ab, IgG 134 [...] Provider Unknown LAB - CHEMISTRY YEE FRANK [facility] Organization Address City/State/ZIP Co de Phone Number [facility]) [address] [place] [address] * RUBEOLA ANTIBODY IGG (02/20/2015 11:40 AM CDT) Pathologist [facility] Measles (Rubeola) Antibody IgG 117.0 AU/mL 02/23/2015 1:08 AM CDT [facility] ([facility]) Comment: INTERPRETIVE INFORMATION: Measles (Rubeola) Antibody, IgG [...] - CHEMISTRY ORDE MONIKA Performing Organization Address City/[facility]/ZIP Co de Phone Number [facility] [employer] ([facility]) [address] * MUMPS ANTIBODY IGG (02/20/2015 11:40 AM CDT) Mumps Virus Antibody IgG 9.3 AU/mL 02/23/2015 1:02 AM CDT [facility] ([facility]) Comment: INTERPRETIVE INFORMATION: Mumps Ab, IgG by [...] CDT Provider Unknown LAB - CHEMISTRY ORDE SHIRLENEANN Performing Organization Address [facility] Co de Phone Number [facility] ([facility]) [address] [place] [address] * RUBELLA ANTIBODY IGG (02/20/2015 11:40 AM CDT) Rubella Antibody IgG Positive - Immune 02/20/2015 9:01 PM CDT [facility] Blood BLOOD SPECIMEN / Unknown Venipuncture / Unknown 02/20/2015 11:40 AM CDT 02/20/2015 8:09 PM CDT Provider Unknown LAB - SEROLOGY ORDER JULIA Performing Organization Address City/[facility]/ZIP Co de Phone Number [facility] [address] [place] [id number] * (ABNORMAL) HEPATITIS B SURFACE ANTIBODY (02/20/2015 11:40 AM CDT) HBsAb REACTIVE(A ) Non Reactive 02/20/2015 8:50 PM CDT [facility] Blood BLOOD SPECIMEN / Unknown Venipuncture / Unknown 02/20/2015 11:40 AM CDT 02/20/2015 8:09 PM CDT Provider Unknown LAB - CHEMISTRY YEE FRANK Performing Organization Address City/State/[facility] Co de Phone Number [facility] [address] [place] [address] documented in this encounter Visit Diagnoses Not on filedocumented in this encounter Care Teams Real Estate Valuer Relationship Specialty Start Date End Date Amisha Pizarro MD [address] [place] [address] PCP - General Family Medicine 04/29/22 documented as of this encounter
--- OUTSIDE RECORDS SUMMARY | 2024-08-24 04:30 | XMS_ITS | Clinical Summary ---
Author Organization [facility] Address [address] [place] [address] Care Team Providers Care Dough Cutter Name Role Phone Amisha Pizarro MD Primary Care Provider [phone] Allergies Active Allergy Reactions Criticality Noted Date [...] migh t be different from the original. [facility] growth scan 05-19-17 2906 gm (60%) 03/17/17 flu inj left arm.ac Rpt CS 06/09/17 @ 9:[address] [facility] Patient is scheduled for her WWC 19 wk usg 01/22/17@1pm pt is informed Problem Noted Date Diagnosed Date Menorrhagia with regular cycle 03/13/2022 Overview (03/13/2022): Added automatically from request for surgery [id number] Depression 02/02/2022 Intrauterine 02/08/2017 Generalized anxiety disorder 05/13/2016 Abnormal cervical Papanicolaou smear 11/23/2014 Overview (10/01/2016): Abnormal Papanicolaou smear of cervix Chronic headache 11/04/2013 Overview (10/01/2016): Chronic headaches Polycystic ovaries 01/05/2013 Overview (10/01/2016): PCOS (polycystic ovarian syndrome) Tobacco dependence syndrome 01/05/2013 Overview (10/01/2016): Tobacco abuse Encounters Date Type Department Care Team Description 08/22/2024 8:39 PM CLOUD ADMINISTRATOR - 08/23/2024 1:44 AM [facility] Emergency [facility] Emergency Department [address] [id number] Discharge Disposition: Left without being seen from Last 3 Months Immunizations Immunization Administration Dates Next Due Influenza, Quadrivalent, Spl it, Preservative Free, Intramuscular 03/17/2017,04/17/2015 Influenza, Trivalent, IM (MDV) 04/04/2013 Rho (D) Immune Globulin 04/01/2017 Surgical History Surgery Date Site/Laterality Comments OTHER SURGICAL HISTORY 2016 : OTHER SURGICAL HISTORY 2016 management: -Pitocin Medical History Medical History Date Comments Hx Other Medical Gastroesophagea l reflux disease Hx Other Medical pcos History of abnormal cervical Papanicolaou smear Abnormal PAP Polycystic ovaries Polycystic ov adriano syndrome Hx Other Medical Asthma, childho od; Comments: 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 intolerance of labor.; Outcome: Live Family History Medical History Relation Name Comments Other Brother Peptic ulcer di sease; Kidney failure Other 2 Renal failure ; Hyperlipidemia Other 3 Family histor y of Hyperlipidemia; Relation Name Status Comments Brother Other 1 Alive Other 2 Other 3 Social History Tobacco Use Types Packs/Day Years [...] on file Legal Sex Female 10:43 AM CLOUD ADMINISTRATOR Gender Identity Not on file Sexual Orientation Not on file Obstetrics History Para Term AB IAB SAB Ectopic Multiple Livin g Live Births 2 2 2 2 Date Outcome GA Total Labor Labor/2nd/3rd Weight Sex Type Anes PTL Tori A1 A5 Name Clin Para Para Comments [address] m Last Filed Vital Signs Vital Sign Reading Time Taken Comments Blood Pressure 122/72 08/22/2024 8:54 PM CLOUD ADMINISTRATOR Pulse 72 08/22/2024 8:54 PM CLOUD ADMINISTRATOR Temperature 36.3 C (97.4 F) 08/22/2024 8:54 PM CLOUD ADMINISTRATOR Respiratory Rate 16 08/22/2024 8:54 PM CLOUD ADMINISTRATOR Oxygen Saturation 98% 08/22/2024 8:54 PM CLOUD ADMINISTRATOR Inhaled Oxygen Concentration - - Weight 68 kg (150 lb) 08/22/2024 8:52 PM CLOUD ADMINISTRATOR Height 160 cm (5' 3 ) 08/22/2024 8:52 PM CLOUD ADMINISTRATOR Body Mass Index 26.57 08/22/2024 8:52 PM CLOUD ADMINISTRATOR Plan of Treatment Health Maintenance Due Date Last Done Comments Depression Screening 1985 Hepatitis C Screening 1985 Varicella Vaccines (1 of 2 - 13+ 2-dose series) 1998 Hepatitis B Screening 2003 Cervical Cancer Screening 02/02/2023 02/02/2022, 01/2017 Regular Well Visit/Exam 18-64 02/02/2023 02/02/2022 Influenza Vaccine (#1) 2024 8, 04/21/2018, 03/17/2017, Additional history exists DTaP/Tdap/Td Vaccine (2 - Td or Tdap) 04/28/2032 04/28/2022 HPV Vaccines Aged Out No longer eligi ble based on patient's age to complete this topic Pneumococcal vaccine <65 Aged Out No longer eligible based on patient's age to complete this topic Procedures Procedure Name Priority Date/Time Associated Diagnosis Comments XR CHEST 1 VIEW ED 08/22/2024 9:40 PM CLOUD ADMINISTRATOR EGFR STAT 08/22/2024 9:05 PM CLOUD ADMINISTRATOR DIFFERENTIAL AUTO STAT 08/22/2024 9:0 5 PM CLOUD ADMINISTRATOR TROPONIN T HIGH-SENSITIVITY SERIES (BASELINE, 2HR, 4HR, 6HR) STAT 08/22/2024 9:05 PM CLOUD ADMINISTRATOR LIPASE STAT 08/22/2024 9:05 PM CLOUD ADMINISTRATOR COMPREHENSIVE METABOLIC PANEL STAT 08/22/2024 9:05 PM CLOUD ADMINISTRATOR CBC WITH AUTO DIFFERENTIAL STAT 08/22/2024 9:05 PM CLOUD ADMINISTRATOR PAP AND HIGH RISK HPV, REFLEX TO GENOTYPING Routine 02/02/2022 2:28 PM CDT Screening for malignant neoplasm of the cervix from Last 3 Months or Most Recently Relevant to Health Maintenance Results * XR Chest 1 Vw Portable (08/22/2024 9:40 PM CLOUD ADMINISTRATOR) Anatomical Region Laterality Modality Body, Chest N/A Computed Radiogr aphy 08/22/2024 10:4 3 PM CLOUD ADMINISTRATOR Narrative 08/22/2024 10:43 PM CLOUD ADMINISTRATOR EXAM DESCRIPTION: XR CHEST 1 VIEW REASON [...] Pranav Oconnell M.D. AT: AT Report ID: [id number] Reading Location: [id number] Procedure Note Pranav Oconnell MD - 08/22/2024 [...] Pranav Oconnell M.D. AT: AT Report ID: [id number] Reading Location: [id number] us Vladimir Noland NITRATING ACID MIXER IMG XR PROCEDURES Final Res ult * Troponin T high-sensitivity series (baseline, 2hr, 4hr, 6hr) (08/22/2024 9:05 PM CLOUD ADMINISTRATOR) Trop T hs <6 <=14 ng/L Comment: Interpretive Data For further hscTnT resources including the diagnostic algorithm and an aid in interpretation, copy and paste this link: https://nrl.testcatalog.org/show/hsTrop Current Interpretive Data last revised 2020. Blood 08/22/2024 9:05 PM CLOUD ADMINISTRATOR 08/22/2024 9:22 PM CLOUD ADMINISTRATOR Lyndsay Rawls MD LAB BLOOD ORDERABLE S Final Result [facility] [place]) [address] [facility] Department [place] [address] * eGFR (08/22/2024 9:05 PM CLOUD ADMINISTRATOR) eGFR 78 >=60 mL/min/1. 73 m2 Comment: [...] last reviewed 2021. Blood 08/22/2024 9:05 PM CLOUD ADMINISTRATOR 08/22/2024 9:22 PM CLOUD ADMINISTRATOR Lyndsay Rawls MD LAB BLOOD ORDERABLE S Final Result [facility] ([place]) [address] [facility] [place] [address] * Differential, auto (08/22/2024 9:05 PM CLOUD ADMINISTRATOR) Neutrophil abs 6.0 1.5 - 6.5 K/cumm Imm gran abs 0.0 0.0 - 0.1 K/cumm [facility] ([facility]) Lymphocyte abs 2.8 0.8 - 3.3 K/cumm [facility] ([place]) Monocyte abs 0.7 0.2 - 0.8 K/cumm [facility] ([place]) Eosinophil abs 0.1 0.0 - 0.5 K/cumm [...] revised on 2017. Blood 08/22/2024 9:05 PM CLOUD ADMINISTRATOR 08/22/2024 9:22 PM CLOUD ADMINISTRATOR Lyndsay Rawls MD LAB BLOOD ORDERABLE S Final Result [facility] ([place] [address] [facility] Department [place] [address] * (ABNORMAL) CBC with auto differential (08/22/2024 9:05 PM CLOUD ADMINISTRATOR) WBC 9.6 3.8 - 9.9 K/cumm Hgb [...] NRBC abs 0.00 0.00 - 0.01 K/cumm [facility] ([facility]) Blood Venous blood specimen / Unknown 08/22/2024 9:05 PM CLOUD ADMINISTRATOR 08/22/2024 9:22 PM CLOUD ADMINISTRATOR us Lyndsay Rawls MD LAB BLOOD ORDERABLE S Final Result [facility] [address] [facility] Department [place] [address] * Lipase (08/22/2024 9:05 PM CLOUD ADMINISTRATOR) Pathologist [facility] Lipase 46 10 - 99 Units/L Blood Venous blood specimen / Unknown 08/22/2024 9:05 PM CLOUD ADMINISTRATOR 08/22/2024 9:22 PM CLOUD ADMINISTRATOR Lyndsay Rawls MD LAB BLOOD ORDERABLE S Final Result [facility] [address] [facility] Department [place] [address] * Comprehensive metabolic panel (08/22/2024 9:05 PM CLOUD ADMINISTRATOR) Pathologist [facility] Sodium 137 135 - 145 mmol/L Potassium, pl 3.7 3.3 - 4.9 mmol/L [facility] ([place]) Chloride 101 97 - 110 mmol/L [facility]) CO2 23 22 - 32 mmol/L [facility] ([place]) Anion gap 14 2 - 15 mmol/L [facility] ([place]) BUN 14 6 - 25 mg/dL [facility] ([place]) Creatinine 0.95 0.60 - 1.10 mg/dL [facility] ([place]) Glucose 111 70 - 199 mg/dL [facility] ([place]) Comment: Interpretive Data Fasting glucose [...] classification and Diagnosis of Diabetes Diabetes Care 2021; 46: S19-S40. Current interpretive data was last [...] Hemolyzed S pecimen Blood 08/22/2024 9:05 PM CLOUD ADMINISTRATOR 08/22/2024 9:22 PM CLOUD ADMINISTRATOR us Lyndsay Rawls MD LAB BLOOD ORDERABLE S Final Result [facility] ([place] Department [place] [address] * Pap and High Risk HPV, reflex to Genotyping (02/02/2022 2:28 PM CDT) Thin prep (Pap test) 02/02/2022 2:28 PM CDT 02/06/2022 9:34 AM CDT Narrative PATHOLOGY [facility] - 02/10/2022 8:19 AM CDT EPIC results best viewed via link to PDF [address] [address] Tele: Sera Husain MD - Physician/Allergy/Immunology CYTOLOGY REPORT Note to Patients: This report [...] the details. Patient Name: JULI CAN Address: [address] [place] [address] , [place], [place] [address] Gender: F : 1985 (Age: 36) Service: Location: [facility] #: [id number] Patient Type: [facility] SPECIMEN Taken: 02/02/2022 Reported: 02/10/2022 Physician(s): Nia [...] recommended by your physician or nurse practitioner. Nia Castro MD LAB CYTOLOGY ORDERABLES [facility] al Result PATHOLOGY [facility] Laboratory Receiving [address] [place] [address] from Last 3 Months or Most Recently Relevant to Health Maintenance Insurance [employer]ED X[employer] X2IMPA[place] X2IMPA[employer] OOS Advance Directives For more information, please contact: [phone] * Full Code (Latest Code Status on File) Date Activated Date Inactivated Comments 04/03/2022 12:51 PM 04/03/2022 4:41 PM Care Teams Dough Cutter Relationship Specialty Start Date End Date Amisha Pizarro MD PCP - General 09/22/20
--- OUTSIDE RECORDS SUMMARY | 2024-08-24 04:30 | XMS_ITS | Encounter Summary ---
Author Organization [facility] Healthcare Address [address] [place] [address] Care Team Providers Care Television Technician Name Role Phone Amisha Pizarro MD Primary Care Provider [phone] Reason for Visit * Reason Comments Abdominal Pain Encounter Details Date Type Department Care Team (Late st Contact Info) Description 08/22/2024 8:39 PM MARBLE INSTALLER - 08/23/2024 1:44 AM [facility] Emergency [facility] Emergency Department [address] [place] [id number] Discharge Disposition: Left without being seen Social History Tobacco Use Types Packs/Day Years Used Date Smoking Tobacco: Former Cigarettes Smokeless Tobacco: Never Alcohol Use Standard Drinks/Week [...] on file Legal Sex Female 10:43 AM MARBLE INSTALLER Gender Identity Not on file Sexual Orientation Not on file documented as of this encounter Last Filed Vital Signs Vital Sign Reading Time Taken Comments Blood Pressure 122/72 08/22/2024 8:54 PM MARBLE INSTALLER Pulse 72 08/22/2024 8:54 PM MARBLE INSTALLER Temperature 36.3 C (97.4 F) 08/22/2024 8:54 PM MARBLE INSTALLER Respiratory Rate 16 08/22/2024 8:54 PM MARBLE INSTALLER Oxygen Saturation 98% 08/22/2024 8:54 PM MARBLE INSTALLER Inhaled Oxygen Concentration - - Weight 68 kg (150 lb) 08/22/2024 8:52 PM MARBLE INSTALLER Height 160 cm (5' 3 ) 08/22/2024 8:52 PM MARBLE INSTALLER Body Mass Index 26.57 08/22/2024 8:52 PM MARBLE INSTALLER documented in this encounter Medications at Time of Discharge buPROPion XL (WELLBUTRIN XL) 300 mg 24 hr tablet Take 300 mg by mouth daily esomeprazole DR (NexIUM) 40 mg capsule Take 40 mg by mouth daily before breakfast. ibuprofen (ADVIL,MOTRIN) 800 mg tablet TAKE 1 TABLET BY MOUTH EVERY 6-8 HOURS NEEDED 1 06/11/2017 LORazepam (ATIVAN) 1 mg tablet 0 12/23/2021 oxyCODONE-acetami nophen (PERCOCET) 5-325 mg per tabletIndications :Pain Take 1-2 tablets by mouth every 4 (four) hours as needed for pain (pain) 3 tablet 04/03/2022 sertraline (ZOLOFT) 100 mg tablet Take 100 mg by mouth daily documented as of this encounter Discharge Disposition Disposition Code Departure Means Destination Left without being seen documented in this encounter ED Notes * Amauri Cheema RN - 08/22/2024 9:30 PM CST Pt ambulatory to ED from home. Pt states she is having 7/10 epigastric pain that radiates to her L flank which comes and goes for the last 24 hours. Pt denies any pertinent medical history. LE INSTALLER documented in this encounter Plan of Treatment Not on file documented as of this encounter Procedures Procedure Name Priority Date/Time Associated Diagnosis Comments XR CHEST 1 VIEW ED 08/22/2024 9:40 PM MARBLE INSTALLER TROPONIN T HIGH-SENSITIVITY SERIES (BASELINE, 2HR, 4HR, 6HR) STAT 08/22/2024 9:05 PM MARBLE INSTALLER EGFR STAT 08/22/2024 9:05 PM MARBLE INSTALLER DIFFERENTIAL AUTO STAT 08/22/2024 9:0 5 PM MARBLE INSTALLER CBC WITH AUTO DIFFERENTIAL STAT 08/22/2024 9:05 PM MARBLE INSTALLER LIPASE STAT 08/22/2024 9:05 PM MARBLE INSTALLER COMPREHENSIVE METABOLIC PANEL STAT 08/22/2024 9:05 PM MARBLE INSTALLER documented in this encounter Results * XR Chest 1 Vw Portable (08/22/2024 9:40 PM MARBLE INSTALLER) Anatomical Region Laterality Modality Body, Chest N/A Computed Radiogr aphy 08/22/2024 10:4 3 PM MARBLE INSTALLER Narrative 08/22/2024 10:43 PM MARBLE INSTALLER EXAM DESCRIPTION: XR CHEST 1 VIEW REASON [...] Pranav Oconnell M.D. AT: AT Report ID: [id number] Reading Location: [id number] Procedure Note Pranav Oconnell MD - 08/22/2024 [...] Pranav Oconnell M.D. AT: AT Report ID: [id number] Reading Location: [place] [address] Vladimir Noland TIRE MOLD ENGRAVER IMG XR PROCEDURES Final Res ult * eGFR (08/22/2024 9:05 PM MARBLE INSTALLER) eGFR 78 >=60 mL/min/1. 73 m2 Comment: [...] last reviewed 2021. Blood 08/22/2024 9:05 PM MARBLE INSTALLER 08/22/2024 9:22 PM MARBLE INSTALLER us Lyndsay Rawls MD LAB BLOOD ORDERABLE S Final Result [facility]) 1 [facility] Department [place] [address] * Differential, auto (08/22/2024 9:05 PM MARBLE INSTALLER) Neutrophil abs 6.0 1.5 - 6.5 K/cumm Imm gran abs 0.0 0.0 - 0.1 K/cumm [facility] ([place]) Lymphocyte abs 2.8 0.8 - 3.3 K/cumm [facility] ([place]) Monocyte abs 0.7 0.2 - 0.8 K/cumm [facility] ([place]) Eosinophil abs 0.1 0.0 - 0.5 K/cumm [facility] ([place]) Basophil abs 0.1 0.0 - 0.1 K/cumm [facility] ([place]) Neutrophil pct 62.4 % [facility]) Comment: Interpretive Data Percent cell count reference ranges are not reported, since discordance with absolute values may lead to misinterpretation of CBC data. Current Interpretive Data was last revised on 2017. Imm gran pct 0.2 % [facility] ([place]) Comment: Interpretive Data Percent cell count reference ranges are not reported, since discordance with absolute values may lead to misinterpretation of CBC data. Current Interpretive Data was last revised on 2017. Lymphocyte pct 29.0 % [facility] ([place]) Comment: Interpretive Data Percent cell count reference ranges are not reported, since discordance with absolute values may lead to misinterpretation of CBC data. Current Interpretive Data was last revised on 2017. Monocyte pct 6.8 % [facility] ([place]) Comment: Interpretive Data Percent cell count reference [...] revised on 2017. Basophil pct 0.5 % [facility]) Comment: Interpretive Data Percent cell count reference ranges are not reported, since discordance with absolute values may lead to misinterpretation of CBC data. Current Interpretive Data was last revised on 2017. Blood 08/22/2024 9:05 PM MARBLE INSTALLER 08/22/2024 9:22 PM MARBLE INSTALLER Lyndsay Rawls MD LAB BLOOD ORDERABLE S Final Result Performing Organization Address City/[facility]/ZIP Co de Phone Number [facility] ([place]) [address] [facility] [place] [address] * Troponin T high-sensitivity series (baseline, 2hr, 4hr, 6hr) (08/22/2024 9:05 PM MARBLE INSTALLER) Trop T hs <6 <=14 ng/L Comment: Interpretive Data For further hscTnT resources including the diagnostic algorithm and an aid in interpretation, copy and paste this link: https://nrl.testcatalog.org/show/hsTrop Current Interpretive Data last revised 2020. Blood 08/22/2024 9:05 PM MARBLE INSTALLER 08/22/2024 9:22 PM MARBLE INSTALLER Lyndsay Rawls MD LAB BLOOD ORDERABLE S Final Result Performing Organization Address City/[facility]/ZIP Co de Phone Number [facility]) [address] [facility] [place] [address] * Lipase (08/22/2024 9:05 PM MARBLE INSTALLER) Lipase 46 10 - 99 Units/L Blood Venous blood specimen / Unknown 08/22/2024 9:05 PM MARBLE INSTALLER 08/22/2024 9:22 PM MARBLE INSTALLER Lyndsay Rawls MD LAB BLOOD ORDERABLE S Final Result Performing Organization Address City/[facility]/ZIP Co de Phone Number [facility] ([place]) 1 [facility] Department [place] [address] * Comprehensive metabolic panel (08/22/2024 9:05 PM MARBLE INSTALLER) Sodium 137 135 - 145 mmol/L Potassium, [...] Hemolyzed S pecimen Blood 08/22/2024 9:05 PM MARBLE INSTALLER 08/22/2024 9:22 PM MARBLE INSTALLER us Lyndsay Maierhofer Ittiara MD LAB BLOOD ORDERABLE S Final Result [facility] [address] * (ABNORMAL) CBC with auto differential (08/22/2024 9:05 PM MARBLE INSTALLER) WBC 9.6 3.8 - 9.9 K/cumm Hgb [...] blood specimen / Unknown 08/22/2024 9:05 PM MARBLE INSTALLER 08/22/2024 9:22 PM MARBLE INSTALLER Lyndsay Rawls MD LAB BLOOD ORDERABLE S Final Result [facility] [address] documented in this encounter Visit Diagnoses Not on filedocumented in this encounter Care Teams Television Technician Relationship Specialty Start Date End Date Amisha Pizarro MD PCP - General 09/22/20 documented as of this encounter
[2024-08-24 04:47] VITALS: BP 109/77; PULSE 93; RESP 18; TEMP 36.4; O2SAT 98
[2024-08-24] MEDS: ONDANSETRON INJ 4 MG/2 ML VIAL IV PUSH (04:58)
--- NOTE | 2024-08-24 04:58 | ED.GENADULT ---
HPI - General Adult General Chief complaint: Abdominal Pain <John Cloud MD - Last Filed: 08/24/24 06:58> Stated complaint: Severe stomach pains <John Cloud MD - Last Filed: 08/24/24 06:58> Time Seen by Provider: 08/24/24 04:36 <John Cloud MD - Last Filed: 08/24/24 06:58> History of Present Illness HPI narrative: Patient 39-year-old female who presents emergency department chief complaint of abdominal pain. Patient reports about 40 hours ago started in the epigastric area radiated to the umbilicus patient reports that she was seen at all normal are all normal wrap as right along were for patient states that has attempted to drink a lot of fluids her abdomen. Is very to head patient denies diarrhea reports no fevers reports prior surgical history for C-sections she patient also reports she has had endometrial ablation <John Cloud MD - Last Filed: 08/24/24 06:58> Patient 39-year-old female who presents to the emergency department chief complaint of abdominal pain. Patient reports about 40 hours ago started in the epigastric area radiated to the umbilicus patient reports that she was seen at all normal are all normal wrap as right along were for patient states that has attempted to drink a lot of fluids her abdomen. Is very to head patient denies diarrhea reports no fevers reports prior surgical history for C-sections she patient also reports she has had endometrial ablation <Kit Haynes MD - Last Filed: 08/24/24 18:02> Related Data Allergies/adverse reactions: Allergies Allergy/AdvReac Type Severity Reaction Status Date / Time amoxicillin Allergy Unknown Unknown Verified 08/24/24 04:49 Penicillins Allergy Unknown Unknown Verified 08/24/24 04:49 <John Cloud MD - Last Filed: 08/24/24 06:58> Review of Systems Review of Systems: A 10 system review of systems was completed on the patient and is negative except for what is stated in the HPI. Nursing and ancillary documentation was reviewed. <John Cloud MD - Last Filed: 08/24/24 06:58> [facility] Past Medical History Medical History: Medical History Obesity Current moderate episode of major depressive disorder PCOS (polycystic ovarian syndrome) Anxiety Depression <John Cloud MD - Last Filed: 08/24/24 06:58> Surgical History Surgical History: Surgical History History of foot surgery History of endometrial ablation Feb 2022 Delivery by section <John Cloud MD - Last Filed: 08/24/24 06:58> Family History Family History: Family History Mother Family history of elevated blood lipids <John Cloud MD - Last Filed: 08/24/24 06:58> Social History Social History: Social History Smoking status: Current some day smoker Second hand tobacco smoke exposure: Yes Alcohol intake: never Substance use: never Substance use type: does not use Do You Feel Safe in your Home?: Yes Lack of Transportation: No Lack of Food: Never True Current Housing: I Have Housing Concerned About Future Housing: No Difficulty Paying Gas/Electric Bills: No Difficulty Paying for Meds: No Currently Unemployed: No Education: High School Diploma/GED Difficulty w/ Childcare or Family Care: No Living arrangements: with family Occupation/Education: occupation 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 HEAD: Normocephalic, atraumatic. EYES: PERRLA and EOMI. ENT: Nares clear, no rhinorrhea or epistaxis. Mucous membranes moist. NECK: Supple. CHEST: Clear to auscultation. No respiratory distress. HEART: Regular rate and rhythm. No murmur heard. Normal peripheral pulses. ABDOMEN: Soft, mild tenderness to palpation in the epigastric region, nondistended, normal active bowel sounds. EXTREMITIES: Normal range of motion. No edema. SKIN: Warm, dry, no rash. NEURO: No focal deficits. Alert and oriented x3. PSYCH: Normal mood and affect. <John Cloud MD - Last Filed: 08/24/24 06:58> Course Reevaluation(s) Reevaluation #1: UA was negative. Patient was discharged home with outpatient follow-up <Kit Haynes MD - Last Filed: 08/24/24 18:02> Vital Signs Vital signs: Vital Signs Temperature 97.6 F 08/24/24 04:47 Pulse Rate 93 08/24/24 04:47 Respiratory Rate 18 08/24/24 04:47 Blood Pressure 109/77 08/24/24 04:47 Pulse Oximetry 98 08/24/24 04:47 Temperature 97.8 F 08/24/24 08:02 Pulse Rate 74 08/24/24 08:02 Respiratory Rate 16 08/24/24 08:02 Blood Pressure 108/70 08/24/24 08:02 Pulse Oximetry 100 08/24/24 08:02 <John Cloud MD - Last Filed: 08/24/24 06:58> Vital Signs Temperature 97.6 F 08/24/24 04:47 Pulse Rate 93 08/24/24 04:47 Respiratory Rate 18 08/24/24 04:47 Blood Pressure 109/77 08/24/24 04:47 Pulse Oximetry 98 08/24/24 04:47 Temperature 97.8 F 08/24/24 08:02 Pulse Rate 74 08/24/24 08:02 Respiratory Rate 16 08/24/24 08:02 Blood Pressure 108/70 08/24/24 08:02 Pulse Oximetry 100 08/24/24 08:02 <Kit Haynes MD - Last Filed: 08/24/24 18:02> Medical Decision Making MDM Narrative Medical decision making narrative: Differential diagnosis was intra-abdominal infection diverticulitis colitis, UTI, pyelonephritis Laboratory studies were obtained on the patient showed normal CBC normal cmp CT scan of the abdomen pelvis showed Nonspecific small bowel infectious/inflammatory enteritis. <John Cloud MD - Last Filed: 08/24/24 06:58> Vital Signs Vital Signs: Vital Signs Temperature 97.6 F 08/24/24 04:47 Pulse Rate 93 08/24/24 04:47 Respiratory Rate 18 08/24/24 04:47 Blood Pressure 109/77 08/24/24 04:47 Pulse Oximetry 98 08/24/24 04:47 Temperature 97.8 F 08/24/24 08:02 Pulse Rate 74 08/24/24 08:02 Respiratory Rate 16 08/24/24 08:02 Blood Pressure 108/70 08/24/24 08:02 Pulse Oximetry 100 08/24/24 08:02 <John Cloud MD - Last Filed: 08/24/24 06:58> Vital Signs Temperature 97.6 F 08/24/24 04:47 Pulse Rate 93 08/24/24 04:47 Respiratory Rate 18 08/24/24 04:47 Blood Pressure 109/77 08/24/24 04:47 Pulse Oximetry 98 08/24/24 04:47 Temperature 97.8 F 08/24/24 08:02 Pulse Rate 74 08/24/24 08:02 Respiratory Rate 16 08/24/24 08:02 Blood Pressure 108/70 08/24/24 08:02 Pulse Oximetry 100 08/24/24 08:02 <Kit Haynes MD - Last Filed: 08/24/24 18:02> Lab Data Result diagrams: 08/24/24 05:02 08/24/24 05:02 <John Cloud MD - Last Filed: 08/24/24 06:58> Labs: Lab Results 08/24/24 08/24/24 Range/Units 05:02 06:31 WBC 8.2 (4.5-10.0) K/mm3 RBC 5.31 (4.2-5.4) M/mm3 Hgb 16.2 H (12.0-15.0) g/dL Hct 45.7 (37.0-47.0) % MCV 86.1 (80-100) fl MCH 30.5 (26-34) pg MCHC 35.4 (32-36) g/dl RDW 12.7 (11.5-14.5) % Plt Count 250 (150-375) k/mm3 MPV 10.8 H (7.4-10.4) fl Immature Gran % (Auto) 0.2 (0-0.5) % Neut % (Auto) 55.9 (45.5-73.1) % Lymph % (Auto) 30.4 (18.3-44.2) % [place] % (Auto) 11.4 H (2.6-8.5) % Eos % (Auto) 1.5 (0-4.4) % Baso % (Auto) 0.6 (0.2-1.2) % Lymph # (Auto) 2.49 (0.9-3.2) K/mm3 [place] # (Auto) 0.9 H (0.1-0.6) K/mm3 Eos # (Auto) 0.1 (0-0.3) K/mm3 Baso # (Auto) 0.1 (0.0-0.1) K/mm3 Abs Immat Gran (auto) 0.02 (0.00-0.031) K/mm3 Absolute Neuts (auto) 4.6 (1.3-6.7) K/mm3 Absolute Nucleated RBC 0.000 (0.0-0.012) K/mm3 Nucleated RBC % 0.0 (0.0-0.2) % Sodium 135 L (137-145) mmol/L Potassium 3.5 (3.4-5.0) mmol/L Chloride 101 (98-107) mmol/L Carbon Dioxide 24 (22-30) mmol/L Anion Gap 10 (4-12) mmol/L BUN 11 (7-17) mg/dL Creatinine 0.83 (0.7-1.0) mg/dL Estim Creat Clear Calc 74 ml/min Estimated GFR > 60 (59 - ) Glucose 95 (65-110) mg/dL Lactic Acid 1.1 (0.7-2.0) mmol/L Calcium 9.3 (8.4-10.2) mg/dL Total Bilirubin 1.0 (0.2-1.3) mg/dL AST 22 (14-36) U/L ALT 27 (6-35) U/L Alkaline Phosphatase 90 (38-126) U/L Total Protein 7.0 (6.3-8.2) g/dL Albumin 3.9 (3.5-5.1) g/dL Lipase 127 (23-300) U/L Urine Color Yellow (Yellow) Urine Appearance Clear (Clear) Urine pH 5.5 (5.0-9.0) Ur Specific [place] 1.019 (1.001-1.035) Urine Protein Negative (Negative) mg/dL Urine Glucose (UA) Negative (Negative) mg/dL Urine Ketones Negative (Negative) mg/dL Ur Blood (Man) Negative (Negative) Urine Nitrate Negative (Negative) Urine Bilirubin Negative (Negative) Urine Urobilinogen 0.2 (<2.0) mg/dL Leukocyte Esterase Rfl Negative (Negative) ADITHYA/UL <John Cloud MD - Last Filed: 08/24/24 06:58> Lab Results 08/24/24 08/24/24 Range/Units 05:02 06:31 WBC 8.2 (4.5-10.0) K/mm3 RBC 5.31 (4.2-5.4) M/mm3 Hgb 16.2 H (12.0-15.0) g/dL Hct 45.7 (37.0-47.0) % MCV 86.1 (80-100) fl MCH 30.5 (26-34) pg MCHC 35.4 (32-36) g/dl RDW 12.7 (11.5-14.5) % Plt Count 250 (150-375) k/mm3 MPV 10.8 H (7.4-10.4) fl Immature Gran % (Auto) 0.2 (0-0.5) % Neut % (Auto) 55.9 (45.5-73.1) % Lymph % (Auto) 30.4 (18.3-44.2) % [place] % (Auto) 11.4 H (2.6-8.5) % Eos % (Auto) 1.5 (0-4.4) % Baso % (Auto) 0.6 (0.2-1.2) % Lymph # (Auto) 2.49 (0.9-3.2) K/mm3 [place] # (Auto) 0.9 H (0.1-0.6) K/mm3 Eos # (Auto) 0.1 (0-0.3) K/mm3 Baso # (Auto) 0.1 (0.0-0.1) K/mm3 Abs Immat Gran (auto) 0.02 (0.00-0.031) K/mm3 Absolute Neuts (auto) 4.6 (1.3-6.7) K/mm3 Absolute Nucleated RBC 0.000 (0.0-0.012) K/mm3 Nucleated RBC % 0.0 (0.0-0.2) % Sodium 135 L (137-145) mmol/L Potassium 3.5 (3.4-5.0) mmol/L Chloride 101 (98-107) mmol/L Carbon Dioxide 24 (22-30) mmol/L Anion Gap 10 (4-12) mmol/L BUN 11 (7-17) mg/dL Creatinine 0.83 (0.7-1.0) mg/dL Estim Creat Clear Calc 74 ml/min Estimated GFR > 60 (59 - ) Glucose 95 (65-110) mg/dL Lactic Acid 1.1 (0.7-2.0) mmol/L Calcium 9.3 (8.4-10.2) mg/dL Total Bilirubin 1.0 (0.2-1.3) mg/dL AST 22 (14-36) U/L ALT 27 (6-35) U/L Alkaline Phosphatase 90 (38-126) U/L Total Protein 7.0 (6.3-8.2) g/dL Albumin 3.9 (3.5-5.1) g/dL Lipase 127 (23-300) U/L Urine Color Yellow (Yellow) Urine Appearance Clear (Clear) Urine pH 5.5 (5.0-9.0) Ur Specific [place] 1.019 (1.001-1.035) Urine Protein Negative (Negative) mg/dL Urine Glucose (UA) Negative (Negative) mg/dL Urine Ketones Negative (Negative) mg/dL Ur Blood (Man) Negative (Negative) Urine Nitrate Negative (Negative) Urine Bilirubin Negative (Negative) Urine Urobilinogen 0.2 (<2.0) mg/dL Leukocyte Esterase Rfl Negative (Negative) ADITHYA/UL <Kit Haynes MD - Last Filed: 08/24/24 18:02> Discharge Plan Discharge Clinical Impression: Abdominal pain, Enteritis <John Cloud MD - Last Filed: 08/24/24 06:58> Patient Disposition: Home, Self-Care <John Cloud MD - Last Filed: 08/24/24 06:58> Condition: Stable <John Cloud MD - Last Filed: 08/24/24 06:58> Instructions: Antibiotic Form, Abdominal Pain (ED), Enteritis (ED) <John Cloud MD - Last Filed: 08/24/24 06:58> Patient Language: Kyrgyz <John Cloud MD - Last Filed: 08/24/24 06:58> Prescriptions: New dicyclomine 20 mg tablet 20 mg PO QID PRN (Reason: abdominal discomfort) Qty: 20 0RF ondansetron 4 mg tablet,disintegrating 4 mg PO Q8H PRN (Reason: nausea and vomiting) Qty: 10 0RF No Action naproxen 375 mg tablet 375 mg PO BID Qty: 14 0RF sertraline 100 mg tablet See Rx Instructions .ROUTE .COMPLEX Qty: 90 2RF Dose Instruction: TAKE ONE TABLET BY MOUTH DAILY Rx Instructions: TAKE ONE TABLET BY MOUTH DAILY bupropion HCl 300 mg tablet extended release 24 hr See Rx Instructions .ROUTE .COMPLEX Qty: 90 2RF Dose Instruction: TAKE ONE BY MOUTH EVERY MORNING Rx Instructions: TAKE ONE BY MOUTH EVERY MORNING spironolactone 50 mg tablet See Rx Instructions .ROUTE .COMPLEX Qty: 90 2RF Dose Instruction: TAKE ONE BY MOUTH DAILY Rx Instructions: TAKE ONE BY MOUTH DAILY lorazepam 1 mg tablet 1.5 mg PO TID PRN (Reason: anxiety) Qty: 405 0RF Zepbound 2.5 mg/0.5 mL pen injector 2.5 mg subcut WEEKLY Qty: 2 1RF Rx Instructions: for 4 weeks <John Cloud MD - Last Filed: 08/24/24 06:58> Follow-up/Referrals: Amisha Pizarro MD [Primary Care Provider] - <John Cloud MD - Last Filed: 08/24/24 06:58> Time of Disposition: 06:57 <John Cloud MD - Last Filed: 08/24/24 06:58> 06:57 <Kit Haynes MD - Last Filed: 08/24/24 18:02>
[2024-08-24] MEDS: SODIUM CHLORIDE 0.9% IV 1,000 ML 999 ML IV CONT (04:59)
[2024-08-24] MEDS: MORPHINE SULFATE (*CRX) 4 MG/ML INJ IV PUSH (04:59)
[2024-08-24 05:08] LABS: Basophils Absolute Auto 0.1 K/mm3 (0.0-0.1); Basophils Percent Auto 0.6 % (0.2-1.2); Eosinophils Absolute Auto 0.1 K/mm3 (0-0.3); Eosinophils Percent Auto 1.5 % (0-4.4); Hematocrit 45.7 % (37.0-47.0); Hemoglobin 16.2 g/dL (12.0-15.0); Immature Granulocyte Absolute 0.02 K/mm3 (0.00-0.031); Immature Granulocyte Percent A 0.2 % (0-0.5); Lymphocytes Absolute Auto 2.49 K/mm3 (0.9-3.2); Lymphocytes Percent Auto 30.4 % (18.3-44.2); Mean Corpuscular HGB Conc 35.4 g/dl (32-36); Mean Corpuscular Hemoglobin 30.5 pg (26-34); Mean Corpuscular Volume 86.1 fl (80-100); Mean Platelet Volume 10.8 fl (7.4-10.4); Monocytes Absolute Auto 0.9 K/mm3 (0.1-0.6); Monocytes Percent Auto 11.4 % (2.6-8.5); Neutrophils Absolute Auto 4.6 K/mm3 (1.3-6.7); Neutrophils Percent Auto 55.9 % (45.5-73.1); Platelet Count Result 250 k/mm3 (150-375); Red Blood Count 5.31 M/mm3 (4.2-5.4); Red Cell Distribution Width 12.7 % (11.5-14.5); White Blood Count 8.2 K/mm3 (4.5-10.0)
[2024-08-24 05:18] LABS: Lactic Acid Reflex 1.1 mmol/L (0.7-2.0)
[2024-08-24 05:20] LABS: Alanine Aminotransferase 27 U/L (6-35); Albumin Level 3.9 g/dL (3.5-5.1); Alkaline Phosphatase 90 U/L (38-126); Anion Gap 10 mmol/L (4-12); Aspartate Amino Transferase 22 U/L (14-36); Blood Urea Nitrogen 11 mg/dL (7-17); Calcium 9.3 mg/dL (8.4-10.2); Carbon Dioxide 24 mmol/L (22-30); Chloride 101 mmol/L (98-107); Estimated CRCL calculation 74 ml/min; Estimated Glomerular Filt Rate > 60; Glucose 95 mg/dL (65-110); Lipase 127 U/L (23-300); Potassium 3.5 mmol/L (3.4-5.0); Sodium 135 mmol/L (137-145)
--- OUTSIDE RECORDS SUMMARY | 2024-08-24 05:27 | XMS_ITS | Encounter Summary ---
Author Organization [facility] Healthcare Address [address] [place] [address] Care Team Providers Care Pillowcase Cleaner Name Role Phone Amisha Pizarro MD Primary Care Provider [phone] Reason for Visit * Reason Comments Abdominal Pain Encounter Details Date Type Department Care Team (Late st Contact Info) Description 08/22/2024 8:39 PM [facility] - 08/23/2024 1:44 AM [facility] Emergency [facility] Emergency Department [address] [place] [id number] Discharge Disposition: Left without being seen Social [...] on file Legal Sex Female 10:43 AM [facility] Gender Identity Not on file Sexual Orientation Not on file documented as of this encounter Last Filed Vital Signs Vital Sign Reading Time Taken Comments Blood Pressure 122/72 08/22/2024 8:54 PM [facility] Pulse 72 08/22/2024 8:54 PM [facility] Temperature 36.3 C (97.4 F) 08/22/2024 8:54 PM [facility] Respiratory Rate 16 08/22/2024 8:54 PM [facility] Oxygen Saturation 98% 08/22/2024 8:54 PM [facility] Inhaled Oxygen Concentration - - Weight 68 kg (150 lb) 08/22/2024 8:52 PM [facility] Height 160 cm (5' 3 ) 08/22/2024 8:52 PM [facility] Body Mass Index 26.57 08/22/2024 8:52 PM [facility] documented in this encounter Medications at Time [...] hours. Pt denies any pertinent medical history. [facility] documented in this encounter Plan of Treatment Not on file documented as of this encounter Procedures Procedure Name Priority Date/Time Associated Diagnosis Comments XR CHEST 1 VIEW ED 08/22/2024 9:40 PM [facility] TROPONIN T HIGH-SENSITIVITY SERIES (BASELINE, 2HR, 4HR, 6HR) STAT 08/22/2024 9:05 PM [facility] EGFR STAT 08/22/2024 9:05 PM [facility] DIFFERENTIAL AUTO STAT 08/22/2024 9:0 5 PM [facility] CBC WITH AUTO DIFFERENTIAL STAT 08/22/2024 9:05 PM [facility] LIPASE STAT 08/22/2024 9:05 PM [facility] COMPREHENSIVE METABOLIC PANEL STAT 08/22/2024 9:05 PM [facility] documented in this encounter Results * XR Chest 1 Vw Portable (08/22/2024 9:40 PM [facility]) Anatomical Region Laterality Modality Body, Chest N/A Computed Radiogr aphy 08/22/2024 10:4 3 PM [facility] Narrative 08/22/2024 10:43 PM [facility] EXAM DESCRIPTION: XR CHEST 1 VIEW REASON [...] Pranav Oconnell M.D. AT: AT Report ID: [id number] Reading Location: [id number] Procedure Note Pranav Oconnell MD - 08/22/2024 [...] Pranav Oconnell M.D. AT: AT Report ID: [id number] Reading Location: [place] [address] Vladimir Noland [employer]ING M[employer] OPERATOR IMG XR PROCEDURES Final Res ult * eGFR (08/22/2024 9:05 PM [facility]) eGFR 78 >=60 mL/min/1. 73 m2 Comment: [...] last reviewed 2021. Blood 08/22/2024 9:05 PM [facility] 08/22/2024 9:22 PM [facility] us Lyndsay Rawls MD LAB BLOOD ORDERABLE S Final Result [facility] ([place]) [facility] Department [place] [address] * Differential, auto (08/22/2024 9:05 PM [facility]) Neutrophil abs 6.0 1.5 - 6.5 K/cumm Imm gran abs 0.0 0.0 - 0.1 K/cumm [facility] ([place]) Lymphocyte abs 2.8 0.8 - 3.3 K/cumm [facility] ([place]) Monocyte abs 0.7 0.2 - 0.8 K/cumm [facility] ([place]) Eosinophil abs 0.1 0.0 - 0.5 K/cumm [facility] ([place]) Basophil abs 0.1 0.0 - 0.1 K/cumm [facility] ([place]) Neutrophil pct 62.4 % [facility] ([place]) Comment: Interpretive Data Percent cell count reference ranges are not reported, since discordance with absolute values may lead to misinterpretation of CBC data. Current Interpretive Data was last revised on 2017. Imm gran pct 0.2 % [facility] ([place]) Comment: Interpretive Data Percent cell count reference ranges are not reported, since discordance with absolute values may lead to misinterpretation of CBC data. Current Interpretive Data was last revised on 2017. Lymphocyte pct 29.0 % [facility] ([place]) Comment: Interpretive Data Percent cell count reference ranges are not reported, since discordance with absolute values may lead to misinterpretation of CBC data. Current Interpretive Data was last revised on 2017. Monocyte pct 6.8 % [facility] ([place]) Comment: Interpretive Data Percent cell count reference [...] revised on 2017. Blood 08/22/2024 9:05 PM [facility] 08/22/2024 9:22 PM [facility] Lyndsay Rawls MD LAB BLOOD ORDERABLE S Final Result Performing Organization Address City/[facility]/ZIP Co de Phone Number [facility] ([place]) 1 [facility] [employer] [place] [address] * Troponin T high-sensitivity series (baseline, 2hr, 4hr, 6hr) (08/22/2024 9:05 PM [facility]) Trop T hs <6 <=14 ng/L Comment: Interpretive Data For further hscTnT resources including the diagnostic algorithm and an aid in interpretation, copy and paste this link: https://nrl.testcatalog.org/show/hsTrop Current Interpretive Data last revised 2020. Blood 08/22/2024 9:05 PM [facility] 08/22/2024 9:22 PM [facility] Lyndsay Rawls MD LAB BLOOD ORDERABLE S Final Result Performing Organization Address City/[facility]/ZIP Co de Phone Number [facility] ([place]) 1 [facility] [employer] [place] [address] * Lipase (08/22/2024 9:05 PM [facility]) Lipase 46 10 - 99 Units/L Blood Venous blood specimen / Unknown 08/22/2024 9:05 PM [facility] 08/22/2024 9:22 PM [facility] Lyndsay Rawls MD LAB BLOOD ORDERABLE S Final Result Performing Organization Address City/[facility]/ZIP Co de Phone Number [facility] ([place]) 1 [facility] Department [place] [address] * Comprehensive metabolic panel (08/22/2024 9:05 PM [facility]) Sodium 137 135 - 145 mmol/L Potassium, [...] Hemolyzed S pecimen Blood 08/22/2024 9:05 PM [facility] 08/22/2024 9:22 PM [facility] us Lyndsay Maierhofer Ittiara MD LAB BLOOD ORDERABLE S Final Result [facility] ([place]) [facility] [address] [place] [address] * (ABNORMAL) CBC with auto differential (08/22/2024 9:05 PM [facility]) WBC 9.6 3.8 - 9.9 K/cumm Hgb [...] blood specimen / Unknown 08/22/2024 9:05 PM [facility] 08/22/2024 9:22 PM [facility] Lyndsay Rawls MD LAB BLOOD ORDERABLE S Final Result [facility] ([place]) [facility] [address] [place] [address] documented in this encounter Visit Diagnoses Not on filedocumented in this encounter Care Teams Pillowcase Cleaner Relationship Specialty Start Date End Date Amisha Pizarro MD PCP - General 09/22/20 documented as of this encounter
--- OUTSIDE RECORDS SUMMARY | 2024-08-24 05:27 | XMS_ITS | Patient Health Summary ---
Author Organization [facility] Address [address] [facility] [place] [address] Care Team Providers Care Instructor Bridge Name Role Phone Amisha Pizarro MD Primary Care Provider [phone] Note from [facility] [place],non-owned Affiliates and Associated Physician Practices is amultiple site organization consisting of ambulatory clinics and hospital sitesin [place], [place], [place] and [place]. This disclosure is being madepursuant to the Care Everywhere program and may not contain all information available regarding this patient. Last updated 18.[facility] Allergies * Penicillins Medications * Be aware that medications may not be up to date on this document. Alwaysverify current medications with the patient. * Hktviz-VnIep-KkGwu-FA-CA-[place] (TRIVEEN-DUO DHA) 29-1-200 & 400 MG MISC [...] Comments Blood Pressure 122/81 04/30/2022 11:15 AM ENGINE OILER Pulse 82 04/30/2022 11:15 AM ENGINE OILER Temperature 37.1 C (98.7 F) 04/30/2022 11:15 AM ENGINE OILER Respiratory Rate 14 04/30/2022 11:15 AM ENGINE OILER Oxygen Saturation 98% 04/30/2022 11:15 AM ENGINE OILER Inhaled Oxygen Concentration - - Weight 72.6 kg (160 lb) 04/28/2022 9:07 AM ENGINE OILER Height 160 cm (5' 3 ) 04/28/2022 9:07 AM ENGINE OILER Body Mass Index 28.34 04/28/2022 9:07 AM ENGINE OILER Medical Devices Implanted Type Area Personalized Living Manager Device Identifier Shelf Expiration Date Model / Serial / Lot 0.45 Kwire Implanted:Qty: 2 on 04/28/2022 by Thierry Meredith DPM at [facility] Left: Toe [employer] [id number] / / Description:1 KWIRE TO LEFT 2ND [...] 01/14/2017) Performed for 18 weeks gestation of ([facility]) * URINALYSIS REFLEX MICROSCOPIC REFLEX CULTURE(Performed 01/14/2017) Performed for 18 weeks gestation of ([facility]) * CULTURE URINE(Performed 01/14/2017) Performed for 18 weeks gestation of ([facility]) * URINALYSIS OBSTETRICS - POINT OF CARE(Performed [...] RADIOLOGY XRAY RESULTS ORDER (05/01/2022 9:27 PM ENGINE OILER) Anatomical Region Laterality Modality Other Narrative 05/01/2022 9:27 PM ENGINE OILER Ordered by an unspecified provider. Scanned Document IMAGING * CBC W/O DIFFERENTIAL (04/30/2022 3:45 AM ENGINE OILER) Only the most recent of2 resultswithin the time period is included. WBC 8.9 4.4 - 10.7 x10E9/L 04/30/2022 4:15 AM ENGINE OILER [facility] RBC 4.94 3.80 - 5.20 x10E12/L 04/30/2022 4:15 AM ENGINE OILER [facility] Hemoglobin 14.4 12.0 - 15.6 gm/dL 04/30/2022 4:15 AM [facility] Hematocrit 43.6 35.9 - 45.5 % 04/30/2022 4:15 AM [facility] MCV 88.3 80.7 - 98.3 fl 04/30/2022 4:15 AM [facility] MCH 29.1 26.7 - 34.0 pg 04/30/2022 4:15 AM [facility] MCHC 33.0 30.8 - 35.9 gm/dL 04/30/2022 4:15 AM [facility] Platelet Count 254 153 - 416 x10E9/L 04/30/2022 4:15 AM [facility] RDW-CV 12.8 12.1 - 14.9 % 04/30/2022 4:15 AM [facility] MPV 9.7 9.4 - 12.9 fl 04/30/2022 4:15 AM [facility] Blood BLOOD SPECIMEN / Unknown Lab Venipuncture / Unknown 04/30/2022 3:45 AM ENGINE OILER 04/30/2022 4:07 AM ENGINE OILER Joseph Santos MD LAB - HEMATOLOGY ORDERABLES [facility] [address] [facility] [email or web address] [address] * (ABNORMAL) COMPREHENSIVE METABOLIC PANEL (04/30/2022 3:45 AM ENGINE OILER) Only the most recent of2 resultswithin the time period is included. [facility] Glucose 88 70 - 105 mg/dL 04/30/2022 4:40 AM [facility] Sodium 137 136 - 145 mmol/L 04/30/2022 4:40 AM [facility] Potassium 4.7 3.5 - 5.1 mmol/L 04/30/2022 4:40 AM [facility] Chloride 104 98 - 107 mmol/L 04/30/2022 4:40 AM [facility] CO2 25 23 - 31 mmol/L 04/30/2022 4:40 AM [facility] Calcium 8.9 8.4 - 10.4 mg/dL 04/30/2022 4:40 AM [facility] Anion Gap 8 8 - 18 mmol/L 04/30/2022 4:40 AM [facility] BUN 12 7 - 18.7 mg/dL 04/30/2022 4:40 AM [facility] Creatinine 0.88 0.57 - 1.11 mg/dL 04/30/2022 4:40 AM [facility] Alkaline Phosphatase 93 40 - 150 U/L 04/30/2022 4:40 AM [facility] ALT 10 0 - 61 U/L 04/30/2022 4:40 AM [facility] AST 14 5 - 34 U/L 04/30/2022 4:40 AM [facility] Protein Total 6.4 6.4 - 8.3 gm/dL 04/30/2022 4:40 AM [facility] Albumin 3.8 3.5 - 5.2 gm/dL 04/30/2022 4:40 AM [facility] Bilirubin Total 0.3 0.2 - 1.2 mg/dL 04/30/2022 4:40 AM [facility] eGFR by CKD-EPI 87(L) >=90 mL/min/1.7 3 m2 04/30/2022 4:40 AM [facility] Blood BLOOD SPECIMEN / Unknown Lab Venipuncture / Unknown 04/30/2022 3:45 AM ENGINE OILER 04/30/2022 4:07 AM [facility] Joseph Santos MD LAB - CHEMISTRY ORDERABLES [facility] [address] [place] [address] * BASIC METABOLIC PANEL (CALCIUM TOTAL) (04/29/2022 3:25 AM [facility]) Glucose 86 70 - 105 mg/dL 04/29/2022 4:12 AM [facility] Sodium 140 136 - 145 mmol/L 04/29/2022 4:12 AM [facility] Potassium 4.0 3.5 - 5.1 mmol/L 04/29/2022 4:12 AM [facility] Chloride 107 98 - 107 mmol/L 04/29/2022 4:12 AM [facility] CO2 23 23 - 31 mmol/L 04/29/2022 4:12 AM [facility] Calcium 8.9 8.4 - 10.4 mg/dL 04/29/2022 4:12 AM [facility] Anion Gap 10 8 - 18 mmol/L 04/29/2022 4:12 AM [facility] BUN 17 7 - 18.7 mg/dL 04/29/2022 4:12 AM [facility] Creatinine 0.83 0.57 - 1.11 mg/dL 04/29/2022 4:12 AM ENGINE OILER [facility] eGFR by CKD-EPI >90 >=90 mL/min/1.7 3 m2 04/29/2022 4:12 AM ENGINE OILER [facility] Blood BLOOD SPECIMEN / Unknown Lab Venipuncture / Unknown 04/29/2022 3:25 AM ENGINE OILER 04/29/2022 3:50 AM ENGINE OILER Amanda Lucio SUPERVISOR PERSONNEL CLERKS-LIFESTYLE COORDINATOR LAB - CHEMISTR Y ORDERABLES Performing Organization Address City/[facility]/ZIP Co de Phone Number [facility] [address] [place] [address] * FL HERNANDO SURGERY (04/28/2022 12:11 PM ENGINE OILER) Narrative [facility] - 04/28/2022 12:12 PM ENGINE OILER For details of this study, please see the providers note. Thierry Meredith DPM FLUOROSCOPY ORDER JULIA Performing Organization Address [facility] Co de Phone Number [facility] * PTT (04/28/2022 10:10 AM ENGINE OILER) PTT 26.4 23.0 - 38.4 sec 04/28/2022 10:30 AM ENGINE OILER [facility] Blood BLOOD SPECIMEN / Unknown Venipuncture / Unknown 04/28/2022 10:10 AM ENGINE OILER 04/28/2022 10:16 AM ENGINE OILER Narrative [facility] - 04/28/2022 10:30 AM ENGINE OILER Heparin Therapeutic Range for PTT: 69.0 - 110.0 seconds. Tal Cohen MD LAB - COAGULATION OR DERABLES Performing Organization Address [facility] Co de Phone Number [facility] [address] [place] [address] * PT-INR (04/28/2022 10:10 AM ENGINE OILER) PT 13.1 12.1 - 14.8 sec 04/28/2022 10:30 AM ENGINE OILER [facility] INR 1.0 0.9 - 1.1 04/28/2022 10:30 AM [facility] Blood BLOOD SPECIMEN / Unknown Venipuncture / Unknown 04/28/2022 10:10 AM ENGINE OILER 04/28/2022 10:16 AM [facility] - 04/28/2022 10:30 AM [facility] Conventional Warfarin Anticoagulant Therapy: INR Reference Range: 2.0-3.0 Intensive Warfarin Anticoagulant Therapy: INR Reference Range: 2.5-3.5 Tal Cohen MD LAB - COAGULATION OR DERABLES [facility] [address] [place] [address] * (ABNORMAL) CBC W AUTO DIFFERENTIAL (04/28/2022 10:10 AM [facility]) WBC 11.1(H) 4.4 - 10.7 x10E9/L 04/28/2022 10:20 AM [facility] WBC Corrected 04/28/2022 10:20 AM [facility] RBC 4.61 3.80 - 5.20 x10E12/L 04/28/2022 10:20 AM [facility] Hemoglobin 13.8 12.0 - 15.6 gm/dL 04/28/2022 10:20 AM [facility] Hematocrit 40.5 35.9 - 45.5 % 04/28/2022 10:20 AM [facility] MCV 87.9 80.7 - 98.3 fl 04/28/2022 10:20 AM [facility] MCH 29.9 26.7 - 34.0 pg 04/28/2022 10:20 AM [facility] MCHC 34.1 30.8 - 35.9 gm/dL 04/28/2022 10:20 AM [facility] Platelet Count 281 153 - 416 x10E9/L 04/28/2022 10:20 AM [facility] RDW-CV 13.1 12.1 - 14.9 % 04/28/2022 10:20 AM [facility] MPV 10.0 9.4 - 12.9 fl 04/28/2022 10:20 AM [facility] Neutrophils % 67.4 44.0 - 73.0 % 04/28/2022 10:20 AM [facility] Lymphocytes % 22.0 20.0 - 43.0 % 04/28/2022 10:20 AM [facility] Monocytes % 8.6 5.0 - 13.0 % 04/28/2022 10:20 AM [facility] Eosinophils % 0.8 0.0 - 6.0 % 04/28/2022 10:20 AM [facility] Basophils % 0.5 0.0 - 2.0 % 04/28/2022 10:20 AM [facility] Immature Granulocytes 0.7 0 - 1 % 04/28/2022 10:20 AM [facility] Neutrophil Absolute 7.49(H) 2.01 - 7.14 x10E9/L 04/28/2022 10:20 AM [facility] Lymphocytes Absolute 2.44 1.07 - 3.94 x10E9/L 04/28/2022 10:20 AM [facility] Monocytes Absolute 0.96 0.26 - 1.07 x10E9/L 04/28/2022 10:20 AM [facility] Eosinophils Absolute 0.09 0 - 0.47 x10E9/L 04/28/2022 10:20 AM [facility] Basophils Absolute 0.05 0 - 0.08 x10E9/L 04/28/2022 10:20 AM [facility] Immature Granulocytes Absolute 0.08(H) 0.00 - 0.06 x10E9/L 04/28/2022 10:20 AM [facility] nRBC Auto 0 /100 WBC 04/28/2022 10:20 AM [facility] Blood BLOOD SPECIMEN / Unknown Venipuncture / Unknown 04/28/2022 10:10 AM ENGINE OILER 04/28/2022 10:16 AM [facility] Tal Cohen MD LAB - HEMATOLOGY ORD ERABLES [facility] [address] [facility] [email or web address] [address] * XR FOOT LEFT 3VW OR MORE (04/28/2022 9:28 AM [facility]) Anatomical Region Laterality Modality Ankle / Foot Radiographic Aniyah ging 04/28/2022 10:0 3 AM ENGINE OILER Impressions 04/28/2022 10:04 AM ENGINE OILER IMPRESSION: Comminuted, essentially nondisplaced fractures of the distal phalanges of the second and third toes. No additional fractures. > Interpreting Provider: Tal Kahn MD on 04/28/2022 10:04 AM Narrative 04/28/2022 10:04 AM ENGINE OILER PROCEDURE: XR FOOT LEFT 3VW OR MORE, DATE/TIME OF EXAM: 04/28/2022 9:29 AM, LOCATION [facility] INDICATION: S97.82XA: Crushing injury of left foot, [...] DATE/TIME OF EXAM: 04/28/2022 9:29 AM, LOCATION [facility] INDICATION: S97.82XA: Crushing injury of left foot, [...] TYPE + SCREEN PANEL (04/28/2022 9:22 AM ENGINE OILER) ABO Rh B NEG 04/28/2022 10:11 AM [facility] Antibody Screen NEG 10:11 AM [facility] Blood Bank BLOOD SPECIMEN / Unknown Venipuncture / Unknown 04/28/2022 9:22 AM ENGINE OILER 04/28/2022 9:24 AM ENGINE OILER Tal Cohen MD LAB - BLOOD BANK ORD ERABLES [facility] [address] [phone] * (ABNORMAL) URINALYSIS MICROSCOPIC ONLY W/REFLEX CULTURE (01/14/2017 11:52 AM CDT) RBC UA 2-5 0-2, 2-5 # /hpf 01/14/2017 1:06 PM T [facility] WBC UA 10-20(A) 0-2, 2-5 # /hpf 01/14/2017 1:06 PM T [facility] Bacteria UA 2+(A) None Seen 01/14/2017 1:06 PM [facility] Epithelial Cell UA 5-10(A) 0-2, 2-5 # /hpf 01/14/2017 1:06 PM [facility] Reflex Status Culture to follow 01/14/2017 1:06 PM [facility] Urine URINE SPECIMEN OBTAINED BY CLEAN CATCH PROCEDURE / Unknown Collection / Unknown 01/14/2017 11:52 AM CDT 01/14/2017 12:08 PM CDT Neda Chow MD LAB - URINALYSIS ORD ERABLES [facility] [address] [place] [address] * (ABNORMAL) URINALYSIS ROUTINE W/REFLEX TO CULTURE (01/14/2017 11:52 AM CDT) Color UA Yellow Straw, Yellow, Dark Yellow 01/14/2017 1:02 PM CDT [facility] Clarity UA Clear 01/14/2017 1:02 PM CDT [facility] Specific [place] UA 1.020 1.005 - 1.030 01/14/2017 1:02 PM T [facility] pH UA 6.0 5.0 - 8.0 pH 01/14/2017 1:02 PM T [facility] Protein UA Negative Negative 01/14/2017 1:02 PM CDT [facility] Blood UA Negative Negative 01/14/2017 1:02 PM T [facility] Leukocyte UA 3+(A) Negative 01/14/2017 1:02 PM CDT [facility] Nitrite UA Negative Negative 01/14/2017 1:02 PM CDT [facility] Glucose UA Negative Negative 01/14/2017 1:02 PM CDT [facility] Ketone UA Negative Negative 01/14/2017 1:02 PM CDT [facility] Bilirubin UA Negative Negative 01/14/2017 1:02 PM T [facility] Urobilinogen UA 0.2 0.1 - 1.0 EU/dL 01/14/2017 1:02 PM [facility] Reflex Status Culture to follow 01/14/2017 1:02 PM [facility] Urine URINE SPECIMEN OBTAINED BY CLEAN CATCH PROCEDURE / Unknown Collection / Unknown 01/14/2017 11:52 AM CDT 01/14/2017 12:08 PM CDT Neda Chow MD LAB - URINALYSIS ORD ERABLES Performing Organization Address City/[facility]/ZIP Co de Phone Number [facility] [address] [place] [address] * CULTURE URINE (01/14/2017 11:52 AM CDT) Culture Urine <10,000 CFU/mL [facility] madeline HIMANSHU 01/15/2017 1:04 PM CDT [facility] Urine URINE SPECIMEN OBTAINED BY CLEAN CATCH PROCEDURE / Unknown Collection / Unknown 01/14/2017 11:52 AM CDT 01/14/2017 12:08 PM CDT Neda Chow MD LAB - MICROBIOLOGY O RDERABLES [facility] [address] [place] [address], [facility] [phone] * URINALYSIS OBSTETRICS - POINT OF CARE (01/14/2017 11:39 AM CDT) Glucose UA negative Negative [facility] PO[facility] TEST[facility] Bilirubin UA negative Negative [facility] PO CT TESTING Ketone UA negative Negative [facility] POCT TEST[facility] Specific [place] UA POCT 1.015 1.000 - 1.030 [facility] [...] OF CARE ORDERABLES [facility] TEST[facility] [address] [phone] * RUBEOLA ANTIBODY IGG (02/20/2015 11:40 AM CDT) Measles (Rubeola) Antibody IgG 117.0 AU/mL 02/23/2015 1:[address] [facility] Renrendai ([facility]) Comment: INTERPRETIVE INFORMATION: Measles (Rubeola) Antibody, IgG [...] - CHEMISTRY YEE FRANK Performing Organization Address [facility] de Phone Number [facility] ([facility]) [address] * MUMPS ANTIBODY IGG (02/20/2015 11:40 AM CDT) Mumps Virus Antibody IgG 9.3 AU/mL 02/23/2015 1:02 AM CDT [facility] ([facility]) Comment: INTERPRETIVE INFORMATION: Mumps Ab, IgG by [...] - CHEMISTRY YEE FRANK Performing Organization Address [facility] Co de Phone Number [facility] ([facility]) [address] * VARICELLA ZOSTER ANTIBODY IGG (02/20/2015 11:40 AM CDT) Varicella zoster Virus Antibody IgG 1775.0 IV 02/23/2015 12:55 AM CDT [facility] ([facility]) Comment: INTERPRETIVE INFORMATION: VZV Ab, IgG 134 [...] Provider Unknown LAB - CHEMISTRY ORDE MONIKA [facility] ([facility]) [address] * RUBELLA ANTIBODY IGG (02/20/2015 11:40 AM CDT) [facility] Rubella Antibody IgG Positive - Immune 02/20/2015 9:01 PM CDT [facility] Blood BLOOD SPECIMEN / Unknown Venipuncture / Unknown 02/20/2015 11:40 AM CDT 02/20/2015 8:09 PM CDT Provider Unknown LAB - SEROLOGY ORDER JULIA Performing Organization Address [facility] de Phone Number [facility] [address] [place] [address] * (ABNORMAL) HEPATITIS B SURFACE ANTIBODY (02/20/2015 11:40 AM CDT) [facility] HBsAb REACTIVE(A ) Non Reactive 02/20/2015 8:50 PM CDT [facility] Blood BLOOD SPECIMEN / Unknown Venipuncture / Unknown 02/20/2015 11:40 AM CDT 02/20/2015 8:09 PM CDT Provider Unknown LAB - CHEMISTRY ORDE MONIKA Performing Organization Address [facility] Co de Phone Number [facility] [address] [place] [address] * PAP SMEAR IG RFLX HPV ASCU (PO REF LAB) (10/27/2013 11:36 AM CDT) Only the most recent of3 resultswithin the time period is included. Pathologist [facility] Diagnosis [facility] ACCOUNT BILL Comment:NEGATIVE FOR INTRAEP [...] CYTYC Thin Prep Vial Resulting Agency Comment [address] [phone] Lanette Burroughs MD LAB - PATHOLOGY /CYTOLOGY [...] CPT [facility] ACCOUNT BILL Comment: CPT . 591026 Miscellaneous samples (specimen) SURGICAL PATHOLOGY SPECIMEN, CLERICAL PROCEDURE INCLUDING CODING OF DIAGNOSES / Unknown 12/08/2012 2:30 PM CDT 12/09/2012 6:30 AM CDT Narrative Resulting Agency Comment [facility] [place] [facility] [address] [facility] [phone] Lanette Burroughs MD LAB - PATHOLOGY /CYTOLOGY ORDERABLES [facility] ACCOUNT BILL * SKIN TEST PPD - POINT OF CARE (07/15/2011 9:20 AM ENGINE OILER) PPD 0mm Comment:neg MISCELLANEOUS SAMPLE S / Unknown Leidy Marroquin SUPERVISOR PERSONNEL CLERKS-LIFESTYLE COORDINATOR LAB - POINT OF CARE ORDERABLES * TSH HI LOW REFLEX FREE T4 (PO REF LAB) (06/16/2011 2:56 PM ENGINE OILER) TSH 1.560 0.450 - 4.500 uIU/mL [facility] ACCOUNT BILL BLOOD SPECIMEN / Unknown 06/16/2011 2:56 PM ENGINE OILER 06/16/2011 6:58 PM ENGINE OILER Narrative Resulting Agency Comment [facility] [address] [phone] Lanette Burroughs MD LAB - CHEMISTRY ORDERABLES Performing Organization Address City/[facility]/ZIP Co de Phone Number [facility] ACCOUNT BILL * PROLACTIN (06/16/2011 2:56 PM ENGINE OILER) Prolactin 15.8 4.8 - 23.3 ng/mL [facility] ACCOUNT BILL Blood specimen (specimen) BLOOD SPECIMEN / Unknown 06/16/2011 2:56 PM ENGINE OILER 06/16/2011 6:58 PM ENGINE OILER Narrative Resulting Agency Comment [facility] [place] [phone] [facility] [phone] Lanette Burroughs MD LAB - CHEMISTRY ORDERABLES Performing Organization Address [facility] Co de Phone Number [facility] ACCOUNT BILL * HYDROXYPROGESTERONE 17- (06/16/2011 2:56 PM ENGINE OILER) 17-Hydroxyproge sterone LCMS 184 ng/dL [facility] ACCOUNT BILL Comment: Adult Female Follicular 15 - 70 Luteal 35 - 290 Blood specimen (specimen) BLOOD SPECIMEN / Unknown 06/16/2011 2:56 PM ENGINE OILER 06/16/2011 6:58 PM ENGINE OILER Narrative Resulting Agency Comment [facility] [address] [phone] Lanette Burroughs MD LAB - CHEMISTRY ORDERABLES Performing Organization Address City/[facility] Co de Phone Number [facility] ACCOUNT BILL * (ABNORMAL) TESTOSTERONE FREE+TOT FEM/CHLD HYPOGNDL MALE (06/16/2011 2:56 PM ENGINE OILER) Testosterone 41 8 - 48 ng/dL [facility] ACCOUNT BILL Testosterone Free 0.87(H) 0.10 - 0.85 ng/dL [facility] ACCOUNT BILL Testosterone % Free 2.12 0.50 - 2.80 % [facility] ACCOUNT BILL Blood specimen (specimen) BLOOD SPECIMEN / Unknown 06/16/2011 2:56 PM ENGINE OILER 06/16/2011 6:58 PM ENGINE OILER Narrative Resulting Agency Comment [facility] [address] [phone] Lanette Burroughs MD LAB - CHEMISTRY ORDERABLES [facility] ACCOUNT BILL * (ABNORMAL) PAP IG CT+GC RFLX HPV ASCU (PO REF LAB) (06/16/2011 2:48 PM ENGINE OILER) Diagnosis (A) [facility] ACCOUNT BILL Comment: EPITHELIAL [...] PAPANICOLAOU TECHNIQUE / Unknown 06/16/2011 2:48 PM ENGINE OILER 06/17/2011 4:48 AM ENGINE OILER Narrative [facility] ACCOUNT BILL - 06/23/2011 4:07 PM ENGINE OILER No. of containers..01 CYTYC Thin Prep Vial Resulting Agency Comment [facility] [address] [phone] Lanette Burroughs MD LAB - PATHOLOGY /CYTOLOGY ORDERABLES [facility] ACCOUNT BILL Care Teams Instructor Bridge Relationship Specialty Start Date End Date Amisha Pizarro MD [address] [place] [address] PCP - General Family Medicine 04/29/22
--- OUTSIDE RECORDS SUMMARY | 2024-08-24 05:27 | XMS_ITS | Encounter Summary ---
Author Organization [facility] Address [address] [place] [address] Phone Care Team Providers Care Information Tech Name Role Phone Fernandez Acharya DO Primary Care Provider [phone] Amisha Pizarro MD Primary Care Provider [phone] Encounter Details Date Type Department Care Team [...] on file Legal Sex Female 10:43 AM GRANTS DIRECTOR Gender Identity Not on file Sexual Orientation Not on file documented as of this encounter Plan of Treatment Not on file documented as of this encounter Procedures Procedure Name Priority Date/Time Associated Diagnosis Comments OBSTETRIC/GYNECOLOGY ULTRASONOGRAPHY REPORT 05/19/2017 4:35 PM GRANTS DIRECTOR documented in this encounter Results * OBSTETRIC/GYNECOLOGY ULTRASONOGRAPHY REPORT (05/19/2017 4:35 PM GRANTS DIRECTOR) Anatomical Region Laterality Modality Ultrasound us Provider Scanning IMG OB US PROCEDURES Final Res ult documented in this encounter Visit Diagnoses Not on filedocumented in this encounter Care Teams Information Tech Relationship Specialty Start Date End Date Fernandez Acharya DO [address] [place] [address] PCP - General 01/22/17 09/21/20 Amisha Pizarro MD [address] [place] [address] PCP - General 09/22/20 documented as of this encounter
--- OUTSIDE RECORDS SUMMARY | 2024-08-24 05:27 | XMS_ITS | Clinical Summary ---
Author Organization [facility] Address [address] [facility] [place] [address] Care Team Providers Care Data Capture Specialist Name Role Phone Amisha Pizarro MD Primary Care Provider [phone] Source Comments [facility],non-owned Affiliates and Associated Physician Practices is amultiple site organization consisting of ambulatory clinics and hospital sitesin [place], [place], [place] and [place]. This disclosure is being madepursuant to the Care Everywhere program and may not contain all information available regarding this patient. Last updated 18.[facility] Allergies Active Allergy Reactions Criticality Noted Date Comments Penicillins 06/16/2011 Medications * Be aware that medications may not be up to date on this document. Alwaysverify current medications with the patient. Medication Sig Dispensed Refills Start Date End Date Status Lubpgw-ArSrs-EuUkj-F A-CA-[place] (TRIVEEN-DUO DHA) 29-1-200 & 400 MG MISC [...] Comments Blood Pressure 122/81 04/30/2022 11:15 AM FOOD BAGGING MACHINE OPERATOR Pulse 82 04/30/2022 11:15 AM FOOD BAGGING MACHINE OPERATOR Temperature 37.1 C (98.7 F) 04/30/2022 11:15 AM FOOD BAGGING MACHINE OPERATOR Respiratory Rate 14 04/30/2022 11:15 AM FOOD BAGGING MACHINE OPERATOR Oxygen Saturation 98% 04/30/2022 11:15 AM FOOD BAGGING MACHINE OPERATOR Inhaled Oxygen Concentration - - Weight 72.6 kg (160 lb) 04/28/2022 9:07 AM FOOD BAGGING MACHINE OPERATOR Height 160 cm (5' 3 ) 04/28/2022 9:07 AM FOOD BAGGING MACHINE OPERATOR Body Mass Index 28.34 04/28/2022 9:07 AM FOOD BAGGING MACHINE OPERATOR Plan of Treatment Health Maintenance Due Date [...] this topic Medical Devices Implanted Type Area Senior Brand Manager Device Identifier Shelf Expiration Date Model / Serial / Lot 0.45 Kwire Implanted:Qty: 2 on 04/28/2022 by Thierry Meredith DPM at [facility] Left: Toe [employer] [id number] / / Description:1 KWIRE TO LEFT 2ND [...] Thin Prep Vial Resulting Agency Comment [facility] [address] [id number] Lanette Burroughs MD LAB - PATHOLOGY /CYTOLOGY [...] 11:38 AM 01/14/2017 1:33 PM Care Teams Data Capture Specialist Relationship Specialty Start Date End Date Amisha Pizarro MD [address] [place] [address] PCP - General Family Medicine 04/29/22
--- OUTSIDE RECORDS SUMMARY | 2024-08-24 05:27 | XMS_ITS | Encounter Summary ---
Author Organization [facility] Address [address] [place] [address] Phone Care Team Providers Care Snaker Name Role Phone AcharyaFernandez pérez Primary Care Provider [phone] Amisha Pizarro MD Primary Care Provider [phone] Encounter Details Date Type Department Care Team (Late st Contact Info) Description 01/22/2017 Orders Only [facility] [address] [facility] [address], [place] [address] Nia Castro MD [address] [place] [address], [place] [address] Social History Tobacco Use Types Packs/Day Years Used Date Smoking Tobacco: Never Alcohol Use Standard Drinks/Week Comments No 0 (1 standard drink = 0.6 oz pur e alcohol) Comments Yes Sex and Gender Information Value Date Recorded Sex Assigned at Not on file Legal Sex Female 10:43 AM AGING ROOM HAND Gender Identity Not on file Sexual Orientation [...] on filedocumented in this encounter Care Teams Snaker Relationship Specialty Start Date End Date Fernandez Acharya DO [address] [place] [address] PCP - General 01/22/17 09/21/20 Amisha Pizarro MD [address] [place] [address] PCP - General 09/22/20 documented as of this encounter
--- OUTSIDE RECORDS SUMMARY | 2024-08-24 05:27 | XMS_ITS | Referral Summary ---
Author Organization [facility] Address [address] [facility] [place] [address] Care Team Providers Care Field Professional Name Role Phone Amisha Pizarro MD Primary Care Provider [phone] Source Comments [facility],non-owned Affiliates and Associated Physician Practices is amultiple site organization consisting of ambulatory clinics and hospital sitesin [place], [place], [place] and [place]. This disclosure is being madepursuant to the Care Everywhere program and may not contain all information available regarding this patient. Last updated 18.[facility] Allergies Active Allergy Reactions Criticality Noted Date Comments Penicillins 06/16/2011 Medications * Be aware that medications may not be up to date on this document. Alwaysverify current medications with the patient. Medication Sig Dispensed Refills Start Date End Date Status Aegxdp-ZeZsy-RcHwu-F A-CA-[place] (TRIVEEN-DUO DHA) 29-1-200 & 400 MG MISC [...] Comments Blood Pressure 122/81 04/30/2022 11:15 AM BOBBIN STRIPPER Pulse 82 04/30/2022 11:15 AM BOBBIN STRIPPER Temperature 37.1 C (98.7 F) 04/30/2022 11:15 AM BOBBIN STRIPPER Respiratory Rate 14 04/30/2022 11:15 AM BOBBIN STRIPPER Oxygen Saturation 98% 04/30/2022 11:15 AM BOBBIN STRIPPER Inhaled Oxygen Concentration - - Weight 72.6 kg (160 lb) 04/28/2022 9:07 AM BOBBIN STRIPPER Height 160 cm (5' 3 ) 04/28/2022 9:07 AM BOBBIN STRIPPER Body Mass Index 28.34 04/28/2022 9:07 AM BOBBIN STRIPPER Functional Status Functional Status Response Date of [...] on file Medical Devices Implanted Type Area Crm Developer Device Identifier Shelf Expiration Date Model / Serial / Lot 0.45 Kwire Implanted:Qty: 2 on 04/28/2022 by Thierry Meredith DPM at [facility] Left: Toe [employer] [id number] / / Description:1 KWIRE TO LEFT 2ND [...] Thin Prep Vial Resulting Agency Comment [facility] [address] [id number] Lanette Burroughs MD LAB - PATHOLOGY /CYTOLOGY ORDERABLES Performing Organization Address City/State/[facility] Co de Phone Number [facility] ACCOUNT BILL [...] 11:38 AM 01/14/2017 1:33 PM Care Teams Field Professional Relationship Specialty Start Date End Date Amisha Pizarro MD [address] [place] [address] PCP - General Family Medicine 04/29/22
--- OUTSIDE RECORDS SUMMARY | 2024-08-24 05:27 | XMS_ITS | Clinical Summary ---
Author Organization [facility] [address] Address [address] [place] [address] [place] [address] Care Team Providers Care Quality Worker Name Role Phone AcharyaFernandez pérez Primary Care Provider [phone] Allergies Active Allergy Reactions Criticality Noted Date [...] to complete this topic Insurance [place] [id number] [facility] PREFERR[facility] Care Teams Quality Worker Relationship Specialty Start Date End Date Fernandez Acharya DO [address] [facility] [place] [address] PCP - General Family Practice 02/17/16
--- OUTSIDE RECORDS SUMMARY | 2024-08-24 05:27 | XMS_ITS | Encounter Summary ---
Author Organization [facility] Address [address] [facility] [place] [address] Care Team Providers Care Senior Director Name Role Phone Amisha Pizarro MD Primary Care Provider [phone] Encounter Details Date Type Department Care Team (Late st Contact Info) Description 02/20/2015 Lab Requisition [facility] [address] [place] [address] Unknown, Provider Social History Tobacco Use Types [...] AM CDT) Varicella zoster Virus Antibody IgG 7787.0 IV 02/23/2015 12:55 AM CDT [facility] ([facility]) Comment: INTERPRETIVE INFORMATION: VZV Ab, [...] Provider Unknown LAB - CHEMISTRY YEE FRANK [facility] Organization Address City/State/ZIP Co de Phone Number [facility]) [address] [place] [address] * RUBEOLA ANTIBODY IGG (02/20/2015 11:40 AM CDT) Pathologist [facility] Measles (Rubeola) Antibody IgG 117.0 AU/mL 02/23/2015 1:08 AM CDT [facility] ([facility]) Comment: INTERPRETIVE INFORMATION: Measles (Rubeola) [...] - CHEMISTRY ORDE MONIKA Performing Organization Address City/[facility]/ZIP Co de Phone Number [facility] [place] ([facility]) [address] * MUMPS ANTIBODY IGG (02/20/2015 11:40 AM CDT) Mumps Virus Antibody IgG 9.3 AU/mL 02/23/2015 1:02 AM CDT [facility] ([facility]) Comment: INTERPRETIVE INFORMATION: Mumps Ab, [...] - CHEMISTRY ORDE SHIRLENEANN Performing Organization Address [facility] Co de Phone Number [facility] ([facility]) [address] [place] [address] * RUBELLA ANTIBODY IGG (02/20/2015 11:40 AM CDT) Rubella Antibody IgG Positive - Immune 02/20/2015 9:01 PM CDT [facility] Blood BLOOD SPECIMEN / Unknown Venipuncture / Unknown 02/20/2015 11:40 AM CDT 02/20/2015 8:09 PM CDT Provider Unknown LAB - SEROLOGY ORDER JULIA Performing Organization Address City/[facility]/ZIP Co de Phone Number [facility] [address] [place] [phone] * (ABNORMAL) HEPATITIS B SURFACE ANTIBODY (02/20/2015 11:40 AM CDT) HBsAb REACTIVE(A ) Non Reactive 02/20/2015 8:50 PM CDT [facility] Blood BLOOD SPECIMEN / Unknown Venipuncture / Unknown 02/20/2015 11:40 AM CDT 02/20/2015 8:09 PM CDT Provider Unknown LAB - CHEMISTRY YEE FRANK Performing Organization Address City/State/[facility] Co de Phone Number [facility] [address] [place] [address] documented in this encounter Visit Diagnoses Not on filedocumented in this encounter Care Teams Senior Director Relationship Specialty Start Date End Date Amisha Pizarro MD [address] [place] [address] PCP - General Family Medicine 04/29/22 documented as of this encounter
--- OUTSIDE RECORDS SUMMARY | 2024-08-24 05:27 | XMS_ITS | Clinical Summary ---
Author Organization [facility] Address [address] [place] [address] Care Team Providers Care Freight Rate Clerk Name Role Phone Amisha Pizarro MD Primary Care Provider [phone] Allergies Active Allergy Reactions Criticality Noted Date [...] migh t be different from the original. [facility] growth scan 05-19-17 2906 gm (60%) 03/17/17 flu inj left arm.ac Rpt CS 06/09/17 @ 9:[address] [facility] Patient is scheduled for her WWC 19 wk usg 01/22/17@1pm pt is informed Problem Noted Date Diagnosed Date Menorrhagia with regular cycle 03/13/2022 Overview (03/13/2022): Added automatically from request for surgery [id number] Depression 02/02/2022 Intrauterine 02/08/2017 Generalized anxiety disorder 05/13/2016 Abnormal cervical Papanicolaou smear 11/23/2014 Overview (10/01/2016): Abnormal Papanicolaou smear of cervix Chronic headache 11/04/2013 Overview (10/01/2016): Chronic headaches Polycystic ovaries 01/05/2013 Overview (10/01/2016): PCOS (polycystic ovarian syndrome) Tobacco dependence syndrome 01/05/2013 Overview (10/01/2016): Tobacco abuse Encounters Date Type Department Care Team Description 08/22/2024 8:39 PM SCREENER OPERATOR - 08/23/2024 1:44 AM [facility] Emergency [facility] Emergency Department [address] [id number] Discharge Disposition: Left without being seen from [...] on file Legal Sex Female 10:43 AM SCREENER OPERATOR Gender Identity Not on file Sexual Orientation [...] Comments Blood Pressure 122/72 08/22/2024 8:54 PM SCREENER OPERATOR Pulse 72 08/22/2024 8:54 PM SCREENER OPERATOR Temperature 36.3 C (97.4 F) 08/22/2024 8:54 PM SCREENER OPERATOR Respiratory Rate 16 08/22/2024 8:54 PM SCREENER OPERATOR Oxygen Saturation 98% 08/22/2024 8:54 PM SCREENER OPERATOR Inhaled Oxygen Concentration - - Weight 68 kg (150 lb) 08/22/2024 8:52 PM SCREENER OPERATOR Height 160 cm (5' 3 ) 08/22/2024 8:52 PM SCREENER OPERATOR Body Mass Index 26.57 08/22/2024 8:52 PM SCREENER OPERATOR Plan of Treatment Health Maintenance Due [...] CHEST 1 VIEW ED 08/22/2024 9:40 PM SCREENER OPERATOR EGFR STAT 08/22/2024 9:05 PM SCREENER OPERATOR DIFFERENTIAL AUTO STAT 08/22/2024 9:0 5 PM SCREENER OPERATOR TROPONIN T HIGH-SENSITIVITY SERIES (BASELINE, 2HR, 4HR, 6HR) STAT 08/22/2024 9:05 PM SCREENER OPERATOR LIPASE STAT 08/22/2024 9:05 PM SCREENER OPERATOR COMPREHENSIVE METABOLIC PANEL STAT 08/22/2024 9:05 PM SCREENER OPERATOR CBC WITH AUTO DIFFERENTIAL STAT 08/22/2024 9:05 PM SCREENER OPERATOR PAP AND HIGH RISK HPV, REFLEX TO GENOTYPING Routine 02/02/2022 2:28 PM CDT Screening for malignant neoplasm of the cervix from Last 3 Months or Most Recently Relevant to Health Maintenance Results * XR Chest 1 Vw Portable (08/22/2024 9:40 PM SCREENER OPERATOR) Anatomical Region Laterality Modality Body, Chest N/A Computed Radiogr aphy 08/22/2024 10:4 3 PM SCREENER OPERATOR Narrative 08/22/2024 10:43 PM SCREENER OPERATOR EXAM DESCRIPTION: XR CHEST 1 VIEW REASON [...] Pranav Oconnell M.D. AT: AT Report ID: [id number] Reading Location: [id number] Procedure Note Pranav Oconnell MD - 08/22/2024 [...] Pranav Oconnell M.D. AT: AT Report ID: [id number] Reading Location: [id number] us Vladimir Noland CLIENT REPORTING ASSOCIATE IMG XR PROCEDURES Final Res ult * Troponin T high-sensitivity series (baseline, 2hr, 4hr, 6hr) (08/22/2024 9:05 PM SCREENER OPERATOR) Trop T hs <6 <=14 ng/L Comment: Interpretive Data For further hscTnT resources including the diagnostic algorithm and an aid in interpretation, copy and paste this link: https://nrl.testcatalog.org/show/hsTrop Current Interpretive Data last revised 2020. Blood 08/22/2024 9:05 PM SCREENER OPERATOR 08/22/2024 9:22 PM SCREENER OPERATOR Lyndsay Rawls MD LAB BLOOD ORDERABLE S Final Result [facility] BERTO) [address] [facility] Department [place] [address] * eGFR (08/22/2024 9:05 PM SCREENER OPERATOR) eGFR 78 >=60 mL/min/1. 73 m2 Comment: [...] last reviewed 2021. Blood 08/22/2024 9:05 PM SCREENER OPERATOR 08/22/2024 9:22 PM SCREENER OPERATOR Lyndsay Rawls MD LAB BLOOD ORDERABLE S Final Result [facility] (BERTO) [address] [facility] [place] [address] * Differential, auto (08/22/2024 9:05 PM SCREENER OPERATOR) Neutrophil abs 6.0 1.5 - 6.5 K/cumm [...] revised on 2017. Blood 08/22/2024 9:05 PM SCREENER OPERATOR 08/22/2024 9:22 PM SCREENER OPERATOR Lyndsay Rawls MD LAB BLOOD ORDERABLE S Final Result [facility] (BERTO) [address] [facility] Department [place] [address] * (ABNORMAL) CBC with auto differential (08/22/2024 9:05 PM SCREENER OPERATOR) WBC 9.6 3.8 - 9.9 K/cumm Hgb [...] blood specimen / Unknown 08/22/2024 9:05 PM SCREENER OPERATOR 08/22/2024 9:22 PM SCREENER OPERATOR us Lyndsay Rawls MD LAB BLOOD ORDERABLE S Final Result [facility] (BERTO) [address] [facility] Department [place] [address] * Lipase (08/22/2024 9:05 PM SCREENER OPERATOR) Pathologist [facility] Lipase 46 10 - 99 Units/L Blood Venous blood specimen / Unknown 08/22/2024 9:05 PM SCREENER OPERATOR 08/22/2024 9:22 PM SCREENER OPERATOR Lyndsay Rawls MD LAB BLOOD ORDERABLE S Final Result [facility] (BERTO) [address] [facility] Department [place] [address] * Comprehensive metabolic panel (08/22/2024 9:05 PM SCREENER OPERATOR) Pathologist [facility] Sodium 137 135 - 145 mmol/L Potassium, [...] Hemolyzed S pecimen Blood 08/22/2024 9:05 PM SCREENER OPERATOR 08/22/2024 9:22 PM SCREENER OPERATOR us Lyndsay Rawls MD LAB BLOOD ORDERABLE S Final Result [facility] ([facility]) [facility] [place] [address] * Pap and High Risk HPV, reflex to Genotyping (02/02/2022 2:28 PM CDT) Thin prep (Pap test) 02/02/2022 2:28 PM CDT 02/06/2022 9:34 AM CDT Narrative PATHOLOGY [facility] - 02/10/2022 8:19 AM CDT EPIC results best viewed via link to PDF [address] [address] Tele: Sera Husain MD - [employer] Pump Tender CYTOLOGY REPORT Note to Patients: This report [...] the details. Patient Name: JULI CAN Address: [address] [place] [address] , [place], [place] [address] Gender: F : 1985 (Age: 36) Service: Location: [facility] #: [id number] Patient Type: [facility] SPECIMEN Taken: 02/02/2022 Reported: 02/10/2022 Physician(s): Nia [...] practitioner. Nia Castro MD LAB CYTOLOGY ORDERABLES [facility] al Result PATHOLOGY [facility] Laboratory Receiving [address] [place] [address] from Last 3 Months or Most Recently Relevant to Health Maintenance Insurance [employer] [place] [employer] [employer] Member Subscriber Plan / Payer (Ef fective 2019-Present) Name:Juli Can Relation to Subscriber:Spouse Name:JUAN JOSÉBECK Date of :1982 (Home) Address: [address] [place] [address] Payer ID:[id number] (NAIC) Type: ALLIANCE Address: [facility] [id number] [place] [address] Advance Directives For more information, please contact: [phone] * Full Code (Latest Code Status on File) Date Activated Date Inactivated Comments 04/03/2022 12:51 PM 04/03/2022 4:41 PM Care Teams Freight Rate Clerk Relationship Specialty Start Date End Date Amisha Pizarro MD PCP - General 09/22/20
--- OUTSIDE RECORDS SUMMARY | 2024-08-24 05:27 | XMS_ITS | Referral Summary ---
Author Organization [facility] Address [address] [place] [address] Care Team Providers Care End User Support Specialist Name Role Phone Amisha Pizarro MD Primary Care Provider [phone] Encounters Date Type Department Care Team Description 08/22/2024 8:39 PM ANTIQUE COLLECTOR - 08/23/2024 1:44 AM [facility] Emergency [facility] Emergency Department [address] [place] [address] Discharge Disposition: Left without being seen from [...] migh t be different from the original. [facility] growth scan 05-19-17 2906 gm (60%) 03/17/17 flu inj left arm.ac Rpt CS 06/09/17 @ 9:[address] [facility] Patient is scheduled for her [facility] 19 wk usg 01/22/17@1pm pt is informed Problem Noted Date Diagnosed Date Menorrhagia with regular cycle 03/13/2022 Overview (03/13/2022): Added automatically from request for surgery [id number] Depression 02/02/2022 Intrauterine 02/08/2017 Generalized anxiety disorder [...] on file Legal Sex Female 10:43 AM ANTIQUE COLLECTOR Gender Identity Not on file Sexual Orientation Not on file Last Filed Vital Signs Vital Sign Reading Time Taken Comments Blood Pressure 122/72 08/22/2024 8:54 PM ANTIQUE COLLECTOR Pulse 72 08/22/2024 8:54 PM ANTIQUE COLLECTOR Temperature 36.3 C (97.4 F) 08/22/2024 8:54 PM ANTIQUE COLLECTOR Respiratory Rate 16 08/22/2024 8:54 PM ANTIQUE COLLECTOR Oxygen Saturation 98% 08/22/2024 8:54 PM ANTIQUE COLLECTOR Inhaled Oxygen Concentration - - Weight 68 kg (150 lb) 08/22/2024 8:52 PM ANTIQUE COLLECTOR Height 160 cm (5' 3 ) 08/22/2024 8:52 PM ANTIQUE COLLECTOR Body Mass Index 26.57 08/22/2024 8:52 PM ANTIQUE COLLECTOR Plan of Treatment Not on file Procedures Procedure Name Priority Date/Time Associated Diagnosis Comments XR CHEST 1 VIEW ED 08/22/2024 9:40 PM ANTIQUE COLLECTOR EGFR STAT 08/22/2024 9:05 PM ANTIQUE COLLECTOR DIFFERENTIAL AUTO STAT 08/22/2024 9:0 5 PM ANTIQUE COLLECTOR TROPONIN T HIGH-SENSITIVITY SERIES (BASELINE, 2HR, 4HR, 6HR) STAT 08/22/2024 9:05 PM ANTIQUE COLLECTOR LIPASE STAT 08/22/2024 9:05 PM ANTIQUE COLLECTOR COMPREHENSIVE METABOLIC PANEL STAT 08/22/2024 9:05 PM ANTIQUE COLLECTOR CBC WITH AUTO DIFFERENTIAL STAT 08/22/2024 9:05 PM ANTIQUE COLLECTOR PAP AND HIGH RISK HPV, REFLEX TO GENOTYPING Routine 02/02/2022 2:28 PM CDT Screening for malignant neoplasm of the cervix from Last 3 Months or Most Recently Relevant to Health Maintenance Results * XR Chest 1 Vw Portable (08/22/2024 9:40 PM ANTIQUE COLLECTOR) Anatomical Region Laterality Modality Body, Chest N/A Computed Radiogr aphy 08/22/2024 10:4 3 PM ANTIQUE COLLECTOR Narrative 08/22/2024 10:43 PM ANTIQUE COLLECTOR EXAM DESCRIPTION: XR CHEST 1 VIEW REASON [...] Pranav Oconnell M.D. AT: AT Report ID: [id number] Reading Location: [id number] Procedure Note Pranav Oconnell MD - 08/22/2024 [...] Andtalon Oconnell M.D. AT: AT Report ID: [id number] Reading Location: [id number] us Vladimir Purikimberly HYDRAMATIC SPECIALIST IMG XR PROCEDURES Final Res ult * Troponin T high-sensitivity series (baseline, 2hr, 4hr, 6hr) (08/22/2024 9:05 PM ANTIQUE COLLECTOR) Pathologist [facility] Trop T hs <6 <=14 ng/L Comment: Interpretive Data For further hscTnT resources including the diagnostic algorithm and an aid in interpretation, copy and paste this link: https://nrl.testcatalog.org/show/hsTrop Current Interpretive Data last revised 2020. Blood 08/22/2024 9:05 PM ANTIQUE COLLECTOR 08/22/2024 9:22 PM ANTIQUE COLLECTOR us Lynsday Rawls MD LAB BLOOD ORDERABLE S Final Result [facility] Department [place] [address] * eGFR (08/22/2024 9:05 PM ANTIQUE COLLECTOR) eGFR 78 >=60 mL/min/1. 73 m2 Comment: [...] last reviewed 2021. Blood 08/22/2024 9:05 PM ANTIQUE COLLECTOR 08/22/2024 9:22 PM ANTIQUE COLLECTOR us Lyndsay Rawls MD LAB BLOOD ORDERABLE S Final Result [facility] ([place]) 1 [facility] Department [place] [address] * Differential, auto (08/22/2024 9:05 PM ANTIQUE COLLECTOR) Neutrophil abs 6.0 1.5 - 6.5 K/cumm Imm gran abs 0.0 0.0 - 0.1 K/cumm [facility] ([place]) Lymphocyte abs 2.8 0.8 - 3.3 K/cumm [facility] ([place]) Monocyte abs 0.7 0.2 - 0.8 K/cumm [facility] ([place]) Eosinophil abs 0.1 0.0 - 0.5 K/cumm [...] revised on 2017. Blood 08/22/2024 9:05 PM ANTIQUE COLLECTOR 08/22/2024 9:22 PM ANTIQUE COLLECTOR us Lyndsay Rawls MD LAB BLOOD ORDERABLE S Final Result [facility] ([place]) 1 [facility] Department [place] [address] * (ABNORMAL) CBC with auto differential (08/22/2024 9:05 PM ANTIQUE COLLECTOR) WBC 9.6 3.8 - 9.9 K/cumm Hgb [...] NRBC abs 0.00 0.00 - 0.01 K/cumm [facility] ([place]) Blood Venous blood specimen / Unknown 08/22/2024 9:05 PM ANTIQUE COLLECTOR 08/22/2024 9:22 PM ANTIQUE COLLECTOR Lynsday Rawls MD LAB BLOOD ORDERABLE S Final Result Performing Organization Address City/[facility]/ZIP Co de Phone Number [facility] ([place]) 1 [facility] [place] [address] * Lipase (08/22/2024 9:05 PM ANTIQUE COLLECTOR) Pathologist [facility] Lipase 46 10 - 99 Units/L Blood Venous blood specimen / Unknown 08/22/2024 9:05 PM ANTIQUE COLLECTOR 08/22/2024 9:22 PM ANTIQUE COLLECTOR Lyndsay Rawls MD LAB BLOOD ORDERABLE S Final Result Performing Organization Address City/[facility] Co de Phone Number [facility] ([place]) [address] [place] [address] * Comprehensive metabolic panel (08/22/2024 9:05 PM ANTIQUE COLLECTOR) Pathologist [facility] Sodium 137 135 - 145 mmol/L Potassium, pl 3.7 3.3 - 4.9 mmol/L [facility] ([place]) Chloride 101 97 - 110 mmol/L [facility] ([place]) CO2 23 22 - 32 mmol/L [facility] ([place]) Anion gap 14 2 - 15 mmol/L [facility] BUN 14 6 - 25 mg/dL [facility] ([place]) Creatinine 0.95 0.60 - 1.10 mg/dL [facility] ([place]) Glucose 111 70 - 199 mg/dL [facility] ([place]) Comment: Interpretive Data Fasting glucose [...] Hemolyzed S pecimen Blood 08/22/2024 9:05 PM ANTIQUE COLLECTOR 08/22/2024 9:22 PM ANTIQUE COLLECTOR us Lyndsay Rawls MD LAB BLOOD ORDERABLE S Final Result [facility] ([place]) 1 [facility] Department [place] [address] * Pap and High Risk HPV, reflex to Genotyping (02/02/2022 2:28 PM CDT) Thin prep (Pap test) 02/02/2022 2:28 PM CDT 02/06/2022 9:34 AM CDT Narrative PATHOLOGY [facility] - 02/10/2022 8:19 AM CDT [facility] results best viewed via link to PDF [place] [id number] [place], [place] [address] Tele: Sera Husain MD - Hand Booked Folder And Stitcher CYTOLOGY REPORT Note to Patients: This report [...] details. Patient Name: JULI CAN Address: [address] , [place] [address] Gender: F : 1985 (Age: 36) Service: Location: Hospital #: [id number] Patient Type: [facility] SPECIMEN Taken: 02/02/2022 Reported: 02/10/2022 Physician(s): Nia [...] LAB CYTOLOGY ORDERABLES Fin al Result PATHOLOGY [facility] Laboratory Receiving [address] [place] [address] from Last 3 Months or Most Recently Relevant to Health Maintenance Insurance [employer] [place] [employer]ESS [employer] O[employer] Advance Directives For more information, please contact: [phone] * Full Code (Latest Code Status on File) Date Activated Date Inactivated Comments 04/03/2022 12:51 PM 04/03/2022 4:41 PM Care Teams End User Support Specialist Relationship Specialty Start Date End Date Amisha Pizarro MD PCP - General 09/22/20
[2024-08-24 06:43] LABS: Add Urine Microscopic? NO; Appearance Urine Clear (Clear); Bilirubin Urine Negative (Negative); Blood Urine Negative (Negative); Color Urine Yellow (Yellow); Glucose Urine UA Negative (Negative); Ketones Urine Negative (Negative); Leukocyte Esterase Ur Negative LEU/UL (Negative); Nitrate Urine Negative (Negative); Protein Urine Negative (Negative); Specific Grav Ur 1.019 (1.001-1.035); Urobilinogen Urine 0.2 mg/dL (<2.0); pH Urine 5.5 (5.0-9.0)
[2024-08-24 07:10] VITALS: BP 106/58; PULSE 74; RESP 16; TEMP 36.6; O2SAT 100
[2024-08-24 08:02] VITALS: BP 108/70; PULSE 74; RESP 16; TEMP 36.6; O2SAT 100
== END 2024-08-24 08:03 | disposition home or self-care (01) ==
PROVIDERS: Emergency Provider Emergency Medicine; PCP Family Medicine
DX: K52.9 Noninfective gastroenteritis and colitis, unspecified (principal); E28.2 Polycystic ovarian syndrome; E66.9 Obesity, unspecified; Z68.26 Body mass index [BMI] 26.0-26.9, adult; F17.200 Nicotine dependence, unspecified, uncomplicated; F32.9 Major depressive disorder, single episode, unspecified; F41.9 Anxiety disorder, unspecified; Z79.85 Long-term (current) use of injectable non-insulin antidiabetic drugs; Z79.899 Other long term (current) drug therapy
CPT/HCPCS: 36415; 74177; 80053; 81003; 83605; 83690; 85025; 96361; 96374; 96375; 99284; J2270; J2405; J7030; Q9967